=== PATIENT | male | born 1960 | race Caucasian/White ===

== ENCOUNTER 2021-11-03 10:26 | Outpatient (CLI) | payer MEDICARE, MEDICAID, SELFPAY ==
[2021-11-03] MEDS: TETRACAINE 0.5% OPHTH 1 DROP EYE-BOTH ×3 (10:50→11:18)
[2021-11-03] MEDS: BRIMONIDINE TARTRATE 0.2% OPHTH 1 DROP EYE-BOTH ×2 (10:51→11:28)
[2021-11-03 10:57] VITALS: BP 117/62; PULSE 89; RESP 18; TEMP 36.4; O2SAT 95
--- NOTE | 2021-11-03 15:13 | PM.PROC ---
Procedure Note Will [facility] bill your pro fee for this procedure?: Yes Procedure: SURGEON: Tasha Gonzáles MD PREOPERATIVE DIAGNOSIS: Posterior capsular opacity, right and left eye POSTOPERATIVE DIAGNOSIS: Posterior capsular opacity, right and left eye PROCEDURE: YAG laser capsulotomy, both eyes ANESTHESIA: Topical. ESTIMATED BLOOD LOSS: None PATHOLOGY SPECIMEN: None COMPLICATIONS: None INDICATIONS: See consult note for details. The risks, benefits and alternatives of the procedure were explained to the patient, who elected to proceed and signed informed consent to do so. PROCEDURE: The patient was brought to the pre-holding area where the right and left eyes were identified as the operative eyes. I placed my initials above the eyes. The following was given in both eyes: The patient received 2 sets of 1 drop of 0.5% tetracaine and 1 drop of 1% tropicamide. They also received 1 drop of 0.2% brimonidine. They received 1 drop of 0.5% tetracaine immediately prior to bringing them back for the procedure. The patient was then brought to the procedure room where the right and left eyes were again identified as the operative eyes. A YAG Markos capsulotomy lens was placed on the right eye. The laser was administered using a total number of 14 shots with an energy of 2.4 mJ per shot for a total energy of 34mJ. The patient tolerated the procedure well. A YAG Markos capsulotomy lens was placed on the left eye. The laser was administered using a total number of 9 shots with an energy of 2.4 mJ per shot for a total energy of 22 mJ. The patient tolerated the procedure well. DISPOSITION: The patient was taken back to the pre-holding area and given 1 drop of 0.2% brimonidine in both eyes. They were discharged to home in stable condition. The patient was instructed to call me or go to the emergency department with any sudden change, including dramatic loss of vision, severe pain in the eye or eyebrow region, nausea, or vomiting. The patient was instructed to use the 0.2% brimonidine 1 drop 2 times a day in both eyes for 1 week. The patient will follow up in the clinic in 1-2 weeks.
== END 2021-11-03 11:30 | disposition home or self-care (01) ==
PROVIDERS: Visit Provider Ophthalmology
DX: H26.9 Unspecified cataract (principal)
CPT/HCPCS: 66821; A9270

== ENCOUNTER 2024-05-10 08:00 | Outpatient (CLI) | payer MEDICARE, MEDICAID, SELFPAY | END 2024-05-10 08:01 | disposition home or self-care (01) | LOC: AMB 05-21 00:47 | PROVIDERS: PCP Family Medicine; Visit Provider Internal Medicine | DX: R53.1 Weakness (principal) | CPT/HCPCS: A0998 ==

== ENCOUNTER 2024-05-10 09:15 | Outpatient (CLI) | payer MEDICARE, MEDICAID, SELFPAY | END 2024-05-10 09:16 | disposition home or self-care (01) | LOC: AMB 05-18 07:37 | PROVIDERS: PCP Family Medicine; Visit Provider Internal Medicine | DX: R53.1 Weakness (principal); M62.81 Muscle weakness (generalized) | CPT/HCPCS: A0425; A0429 ==

== ENCOUNTER 2024-05-10 09:33 | Emergency (ER) | payer MEDICARE, MEDICAID, SELFPAY ==
[2024-05-10] VITALS (23 sets, daily range): BP systolic 105–153; BP diastolic 56–94; PULSE 92–108; RESP 16–18; TEMP 35.8–36.4; O2SAT 91–95; BMI 40.6
--- NOTE | 2024-05-10 09:39 | CRLHL7_ITS ---
For Patients: As a result of the Century Cures Act, medical imaging exams and procedure reports are released immediately into your electronic medical record. You may view this report before your referring provider. If you have questions, please contact your health care provider. INDICATION: Acute stroke, right arm and leg weakness. TECHNIQUE: CTA neck with contrast bolus tracking, 3D angiographic rendering using maximum intensity projection (MIP) and images permanently archived. FINDINGS: There is minor bilateral carotid atherosclerosis. There is no significant carotid artery stenosis or dissection. The left vertebral artery is small and functionally occluded. There is no significant right vertebral artery stenosis or dissection. The soft tissues of the neck are within normal limits. The cervical spine is in normal alignment. Degenerative changes are noted in the cervical spine. IMPRESSION: 1. Carotid atherosclerosis without significant stenosis. 2. Functionally occluded small left vertebral artery. Please note that all CT scans at this facility use dose modulation, iterative reconstruction, and/or weight-based dosing when appropriate to reduce radiation dose to as low as reasonably achievable. Dictated by Francis Moreno MD @ 05/10/2024 10:32:24 AM (Electronically Signed)
--- NOTE | 2024-05-10 09:39 | CRLHL7_ITS ---
For Patients: As a result of the Century Cures Act, medical imaging exams and procedure reports are released immediately into your electronic medical record. You may view this report before your referring provider. If you have questions, please contact your health care provider. INDICATION: Acute stroke, right arm and leg weakness. TECHNIQUE: CTA head with contrast bolus tracking, 3D angiographic rendering using maximum intensity projection (MIP) and images permanently archived. FINDINGS: There is scattered intracranial atherosclerotic disease. The basilar artery is diminutive and terminates at the level of the superior cerebellar arteries. Both posterior cerebral arteries have origin, arising from the internal carotid arteries. No aneurysm is identified. IMPRESSION: Diminutive basilar artery as described. No anterior circulation large vessel occlusion. Please note that all CT scans at this facility use dose modulation, iterative reconstruction, and/or weight-based dosing when appropriate to reduce radiation dose to as low as reasonably achievable. Dictated by Francis Moreno MD @ 05/10/2024 10:29:42 AM (Electronically Signed)
--- NOTE | 2024-05-10 09:39 | CRLHL7_ITS ---
For Patients: As a result of the Century Cures Act, medical imaging exams and procedure reports are released immediately into your electronic medical record. You may view this report before your referring provider. If you have questions, please contact your health care provider. INDICATION: FALL, WEAKNESS, HX CVA W/ I DFICITS, NOW W/ RT LEG/ARM. TECHNIQUE: Non-contrast CT of the head is submitted. No comparisons. FINDINGS: Mild diffuse parenchymal volume loss with commensurate vacuo dilatation ventricles and sulci. Right cerebellar hemisphere encephalomalacia, compatible with a remote infarct. Additional small focus of encephalomalacia along the anteroinferior cortex of the right precentral gyrus. Otherwise, no territorial loss of [place]-white differentiation to indicate an acute transcortical infarction. No acute intracranial hemorrhage or mass effect. No midline shift. The basal cisterns are widely patent. IMPRESSION: No radiographic evidence of acute intracranial abnormalities. These findings were discussed with Dr. Campo at 10:01 a.m. Please note that all CT scans at this facility use dose modulation, iterative reconstruction, and/or weight-based dosing when appropriate to reduce radiation dose to as low as reasonably achievable. Dictated by Aung Lopez MD @ 05/10/2024 10:02:26 AM (Electronically Signed)
--- NOTE | 2024-05-10 09:39 | CRLHL7_ITS ---
For Patients: As a result of the Century Cures Act, medical imaging exams and procedure reports are released immediately into your electronic medical record. You may view this report before your referring provider. If you have questions, please contact your health care provider. INDICATION: Trauma. Weakness. History of CVA. COMPARISON: None TECHNIQUE: CT examination of the cervical spine is performed without contrast using spiral technique. Thin axial, sagittal and coronal reconstructions were made. Please note that all CT scans at this facility use dose modulation, iterative reconstruction, and/or weight-based dosing when appropriate to reduce radiation dose to as low as reasonably achievable. FINDINGS: : There is no traumatic malalignment. Curvature is normal. Relatively mild degenerative changes diffusely. No acute fracture, dislocation or destructive process. There are atherosclerotic vascular calcifications including the carotids. IMPRESSION: Degenerative changes. No visible acute fracture, dislocation or destructive process. Atherosclerotic vascular calcifications noted. Please note that all CT scans at this facility use dose modulation, iterative reconstruction, and/or weight-based dosing when appropriate to reduce radiation dose to as low as reasonably achievable. Dictated by Norbert Avendano MD @ 05/10/2024 10:14:47 AM (Electronically Signed)
--- NOTE | 2024-05-10 09:44 | ED_ITS ---
HPI - General Adult General Time Seen by Provider: 09:35 Date Seen: 05/10/24 Chief complaint: Neuro Symptoms/Altered Deficit Stated complaint: R arm weakness Time Seen by Provider: 05/10/24 09:35 Source: patient, EMS and RN notes reviewed Mode of arrival: EMS Limitations: no limitations History of Present Illness HPI narrative: This 63-year-old male is brought in by [facility] by EMS. They were called to the facility for a lift assist. Patient slid out of his recliner in maybe was down on the floor for couple of hours. He was incontinent of urine. They helped get him up, assisted with helping getting him cleaned up. He initially did not want evaluation, EMS left but was subsequently called back when right- sided deficits were noted when he went to breakfast. Patient has a history of a stroke and residual left-sided deficits. He is denying any pain at this point. He did go down to eat after this and was noted to have right arm and leg weakness and requested evaluation in the ER. We do not have a definite time frame for this right weakness. He is denying any pain. No headache. EMS obtained a glucose of 336 on the 1st run, were back within an hour and thus did not do a subsequent glucose. His last oral intake was last night reportedly. Patient was seen on arrival, he is alert and interactive, has some food along the right side of his face. Somewhat flat in affect. He can speak But is not very verbose. He has basically answering yes no questions but is alert and interactive. His hand cloth pattern maker strengths are more diminished on the right versus the left, would give his left about a 3/4, right is certainly less strong than the left but still does have some hand cloth pattern maker strength. He can lift his arms off the bed but when holding them up in front of him, right arm has some a tremulousness to it, has difficulty holding it up compared to the left. He cannot lift his right leg off the bed at all, can briefly lift his left leg off the bed for a couple seconds. He can press down and hold up with through his left ankle, is not giving me any movement through his right ankle. Did call a stroke code at this point, will have head CT, cervical spine CT given potential trauma as well as angio of his head and neck. Rule out ischemic stroke, potential underlying bleeding. Related Data Home Medications ?Medication ?Instructions ?Recorded ?Confirmed acetaminophen 500 mg tablet 500 mg PO Q6H PRN 05/10/24 05/10/24 aspirin 81 mg tablet,delayed 81 mg PO DAILY 05/10/24 05/10/24 release atorvastatin 40 mg tablet 40 mg PO DAILY 05/10/24 05/10/24 bupropion HCl 150 mg 24 hr tablet, 150 mg PO DAILY 05/10/24 05/10/24 extended release carvedilol 6.25 mg tablet 6.25 mg PO BID 05/10/24 05/10/24 cholecalciferol (vitamin D3) 25 25 mcg PO DAILY 05/10/24 05/10/24 mcg (1,000 unit) tablet clopidogrel 75 mg tablet 75 mg PO DAILY 05/10/24 05/10/24 empagliflozin 25 mg tablet 25 mg PO DAILY 05/10/24 05/10/24 (Jardiance) escitalopram oxalate 20 mg tablet 20 mg PO DAILY 05/10/24 05/10/24 furosemide 20 mg tablet 20 mg PO DAILY 05/10/24 05/10/24 gabapentin 300 mg capsule 300 mg PO DAILY 05/10/24 05/10/24 lisinopril 5 mg tablet 5 mg PO DAILY 05/10/24 05/10/24 multivitamin with folic acid 400 1 tab PO DAILY 05/10/24 05/10/24 mcg tablet (Tab-A-Myron) omega-3 300 mg-dha 120 mg-epa 180 cap PO 05/10/24 mg-fish oil 1,000 mg capsule trazodone 100 mg tablet 100 mg PO DAILY 05/10/24 05/10/24 umeclidinium 62.5 mcg/actuation 1 inh inhalation DAILY 05/10/24 05/10/24 blister powder for inhalation (Incruse Ellipta) urea 20 % topical cream applic topical 05/10/24 Allergies Allergy/AdvReac Type Severity Reaction Status Date / Time doxycycline Allergy Unknown Verified 05/10/24 10:17 tetracycline Allergy Unknown Verified 05/10/24 10:17 Review of Systems Status of ROS: Reports: 6 or more systems reviewed and unremarkable except as noted in History and below [facility] Medical History (Updated 05/10/24 @ 15:26 by Danya Santana MD) Hemiplegia and hemiparesis following cerebral infarction affecting right d ominant side ?I69.351 - Hemiplegia and hemiparesis following cerebral infarction affecting right dominant side (ICD-10) Hypertension ?I10 - Essential (primary) hypertension (ICD-10) History of fall ?Z91.81 - History of falling (ICD-10) Hyperlipidemia ?E78.5 - Hyperlipidemia, unspecified (ICD-10) Obesity ?E66.9 - Obesity, unspecified (ICD-10) Type 2 diabetes mellitus ?E11.9 - Type 2 diabetes mellitus without complications (ICD-10) Surgical History (Updated 05/10/24 @ 11:07 by Danya Santana MD) Status post aorto-coronary artery bypass graft ?Z95.1 - Presence of aortocoronary bypass graft (ICD-10) Social History Non-prescribed substance use: denies use Exam Const: Vital Signs, click to edit/add: Vital Signs - 24 hr 05/10/24 09:33 05/10/24 10:03 05/10/24 10:46 Temperature 96.5 F L Pulse Rate 101 H Pulse Rate [Pulse Oximeter] 108 H Respiratory Rate 16 Blood Pressure Blood Pressure [Ri ght Upper Arm] 150/84 H Pulse Oximetry 94 95 94 Oxygen Delivery Me thod Room Air 05/10/24 10:47 05/10/24 10:48 05/10/24 11:00 Temperature Pulse Rate 102 H 103 H 99 Pulse Rate [Pulse Oximeter] Respiratory Rate 18 Blood Pressure 153/56 H Blood Pressure [Ri ght Upper Arm] Pulse Oximetry 93 94 95 Oxygen Delivery Me thod 05/10/24 11:03 05/10/24 11:15 05/10/24 11:16 Temperature Pulse Rate 104 H Pulse Rate [Pulse Oximeter] Respiratory Rate Blood Pressure 136/94 H 127/81 Blood Pressure [Ri ght Upper Arm] Pulse Oximetry 93 Oxygen Delivery Me thod 05/10/24 12:39 05/10/24 12:40 05/10/24 12:45 Temperature Pulse Rate 102 H 104 H 103 H Pulse Rate [Pulse Oximeter] Respiratory Rate Blood Pressure 132/86 Blood Pressure [Ri ght Upper Arm] Pulse Oximetry 93 94 93 Oxygen Delivery Me thod 05/10/24 12:46 05/10/24 13:00 05/10/24 13:01 Temperature Pulse Rate 101 H 101 H 100 Pulse Rate [Pulse Oximeter] Respiratory Rate Blood Pressure 123/76 131/89 Blood Pressure [Ri ght Upper Arm] Pulse Oximetry 93 94 94 Oxygen Delivery Me thod 05/10/24 13:17 05/10/24 13:30 05/10/24 13:33 Temperature 97.6 F Pulse Rate 98 93 94 Pulse Rate [Pulse Oximeter] Respiratory Rate 18 Blood Pressure 121/67 105/66 Blood Pressure [Ri ght Upper Arm] Pulse Oximetry 92 91 92 Oxygen Delivery Me thod 05/10/24 13:34 05/10/24 13:46 05/10/24 14:02 Temperature Pulse Rate 92 Pulse Rate [Pulse Oximeter] Respiratory Rate Blood Pressure 109/56 L 122/73 Blood Pressure [Ri ght Upper Arm] Pulse Oximetry 92 Oxygen Delivery Me thod 05/10/24 14:11 05/10/24 14:15 Temperature Pulse Rate 100 103 H Pulse Rate [Pulse Oximeter] Respiratory Rate Blood Pressure Blood Pressure [Ri ght Upper Arm] Pulse Oximetry 93 91 Oxygen Delivery Me thod Course Reevaluation(s) Time of Reevaluation #1: 11:03 Reevaluation #1: Current glucose through lab is 476. Patient does state he did take his insulin this morning, absolutely do not know if this is accurate or not. Will give him some IV regular insulin given this level of sugar. Follow Accu-Cheks. Time of Reevaluation #2: 15:25 Reevaluation #2: Patient was given another dose of insulin for hyperglycemia. He has been able to move himself into his wheelchair. Plan is to discharge back to [facility] at this time with outpatient follow-up. Consultations Consultation #1: Spoke with stroke neurologist Dr. Campo, he will see patient hopefully when patient is back from [facility]. Have reviewed with him my preliminary thoughts on the head CT, certainly do see right cerebellar old infarct. Need to have Neurology as well as Radiology visualize these. CT angiograms are being done. He would like a MR brain noncontrast which I have subsequently ordered. Patient is very likely not a candidate for any lytic therapy. 10:23 a.m.: Have spoken with Dr. Campo, he has seen the patient. He is not finding much on the left side, does agree that there right-sided deficits and weakness. There is nothing acutely showing on the CT angiograms or the CT brain. I will text him when the MR imaging is done of the brain. We will discuss further after we have that. Did see that patient's lactate is elevated at 3.6. Will give him a 500 mL normal saline bolus, patient is diabetic with hyperglycemia, could be attributed to metabolic issues. Will consider infectious issues as well. 2:41 p.m.: Dr. Campo has been able to review MRI, there is no new stroke. Patient can be discharged to home. If he has ongoing weakness, can follow up with his primary, can go to physical therapy. Time: 09:50 Vital Signs Vital signs: Initial Vital Signs Temperature 96.5 F L 05/10/24 09:33 Temperature Source Temporal Artery Scan 05/10/24 09:33 Pulse Rate 108 H 05/10/24 09:33 Respiratory Rate 16 05/10/24 09:33 Blood Pressure 150/84 H 05/10/24 09:33 Blood Pressure Mean 106 H 05/10/24 09:33 Blood Pressure Position Supine 05/10/24 09:33 Pulse Oximetry 94 05/10/24 09:33 Oxygen Delivery Method Room Air 05/10/24 09:33 Vital Signs Temperature 96.5 F L 05/10/24 09:33 Pulse Rate 108 H 05/10/24 09:33 Respiratory Rate 16 05/10/24 09:33 Blood Pressure 150/84 H 05/10/24 09:33 Pulse Oximetry 94 05/10/24 09:33 Oxygen Delivery Method Room Air 05/10/24 09:33 Temperature 97.6 F 05/10/24 13:33 Pulse Rate 103 H 05/10/24 14:15 Respiratory Rate 18 05/10/24 13:33 Blood Pressure 122/73 05/10/24 14:02 Pulse Oximetry 91 05/10/24 14:15 Oxygen Delivery Method Room Air 05/10/24 09:33 Medications Administered Medications: Discontinued Medications Generic Name Dose Route Start Last Admin Trade Name Freq PRN Reason Stop Dose Admin Sodium Chloride 500 mls @ 500 mls/hr 05/10/24 10:25 05/10/24 14:14 0.9 % Sodium Chloride 500 Ml IV 05/10/24 11:24 Infused .Q1H ONE Infusion Insulin Human Regular 10 unit 05/10/24 11:05/10/24 11:19 Insulin Regular, Human 100 Unit/Ml Vial IVP 05/10/24 11:04 10 unit ONCE ONE Administration Insulin Human Regular 6 unit 05/10/24 14:42 05/10/24 14:49 Insulin Regular, Human 100 Unit/Ml Vial IVP 05/10/24 14:43 6 unit ONCE ONE Administration Medical Decision Making Medical Records Medical records reviewed: Yes I reviewed the patient's medical records Medical records narrative: On subsequent review of his records, his problem list from [facility] shows hemiplegia and hemiparesis following cerebral infarction affecting right dominant side. Lab Data Lab results reviewed: Yes I reviewed the patient's lab results Labs: Lab Results 05/10/24 05/10/24 Range/Units 10:02 10:04 WBC 10.61 (4.50-11.00) K/uL RBC 5.71 (4.30-5.90) m/uL Hgb 16.7 (13.5-17.5) gm/dL Hct 50.9 (37.0-53.0) % MCV 89 (80-100) fL MCH 29 (26-34) pg MCHC 33 (32-36) gm/dL RDW Coeff of Regis 12.8 (11.5-15.5) % Plt Count 199 (140-440) K/uL Neut % (Auto) 79.0 H (42.0-72.0) % Lymph % (Auto) 13.7 L (20-44) % [place] % (Auto) 6.9 (0.0-11.0) % Eos % (Auto) 0.1 (0.0-7.0) % Baso % (Auto) 0.1 (0.0-3.0) % Neut # (Auto) 8.40 H (1.7-7.0) K/uL Lymph # (Auto) 1.50 (0.90-2.90) K/uL [place] # (Auto) 0.70 (0.00-0.90) K/UL Eos # (Auto) 0.01 (0.00-0.50) K/uL Baso # (Auto) 0.01 (0.00-0.30) K/uL Abs Immat Gran (auto) 0.02 (0.00-0.30) K/uL Imm/Tot Granulo (auto) 0.2 % INR 1.06 (0.91-1.10) APTT 28 (23-33) Seconds Sodium 130 L (135-149) mmol/L Potassium 5.6 H (3.6-5.1) mmol/L Chloride 100 (96-114) mmol/L Carbon Dioxide 21 (20-32) mmol/L Anion Gap 9 (7-15) mEq/L BUN 45 H (7-30) mg/dL Creatinine 1.3 (0.5-1.5) mg/dL Estimated Creat Clear 56.65 Estimated GFR 61 ml/min Glucose 476 H* (60-115) mg/dL Lactate 3.6 H (0.5-1.9) mmol/L Calcium 8.3 L (8.4-10.6) mg/dL Total Bilirubin 0.4 (0.1-1.5) mg/dL AST 23 (12-35) U/L ALT 29 (4-50) U/L Alkaline Phosphatase 140 (40-150) U/L Total Creatine Kinase 122 (54-186) U/L Troponin I 0.03 (0.01-0.04) ng/mL C-Reactive Protein 1.0 (0.5-1.0) mg/dL NT-Pro-B Natriuret Pep 288 pg/mL Total Protein 6.3 (6.0-8.3) g/dL Albumin 3.8 (3.3-5.0) g/dL TSH 0.337 (0.270-4.200) uIU/mL Ethyl Alcohol < 0.01 L (0.01-0.03) % SARS-CoV-2 (PCR) Negative SARS-CoV-2 (Negative) Influenza Type A (PCR) Negative PCR FLU A (Negative) Influenza Type B (PCR) Negative PCR FLU B (Negative) RSV (PCR) Negative PCR RSV (Negative) Imaging Data CT scan - head: Attestation: I have reviewed the pertinent imaging results. Radiologist's impression: Facility:?[facility] Patient ID:?[id number] Site Patient ID:?[id number]. Site :?05/09/1951 Study:?CT-Abdomen/Pelvis w/iv-05/10/2024 9:08:52 AM Ordering Physician:?Esther Hagan Final Report: INDICATION: Lower abdominal cramping COMPARISON: None TECHNIQUE: CT examination of the abdomen and pelvis was performed following the uneventful intravenous administration of 89 cc of Isovue 370. Thin section axial images were obtained from the lung bases through the pubic symphysis. Oral contrast was not administered. Please note that all CT scans at this facility use dose modulation, iterative reconstruction, and/or weight-based dosing when appropriate to reduce radiation dose to as low as reasonably achievable. FINDINGS: LUNG BASES: Linear opacities probably due to atelectasis or scarring.The heart size is normal at the lung bases. Small hiatal hernia LIVER/BILIARY SYSTEM:The liver is normal in size and configuration. There is no focal mass and there is no intra- or extra hepatic biliary ductal dilatation.The gall bladder appears normal. ADRENALS: Normal KIDNEYS, URETERS and BLADDER:The kidneys appear normal. No visible mass, calculus or hydronephrosis. The ureters and bladder as visualized appear normal. SPLEEN:Normal appearance. PANCREAS: Appears normal. RETROPERITONEUM and MESENTERY: There is no mass, adenopathy or aortic aneurysm. Atherosclerotic vascular calcification GASTROINTESTINAL SYSTEM: There are findings of colitis involving the mid to left lateral transverse colon and descending colon and probably a small portion of the sigmoid. There is diverticulosis. No intramural air, free air or collection. PELVIS: No mass, adenopathy or free fluid. OSSEOUS STRUCTURES and ABDOMINAL WALL: There is an age-appropriate appearance of the osseous structures.No significant abdominal wall defect. OTHER: No free fluid or free air. IMPRESSION: Colitis involving the mid and left lateral aspect of the transverse colon, descending colon and a portion of the sigmoid. No intramural air, free air or collection. Other incidental nonacute findings as discussed in the body of the report. Please note that all CT scans at this facility use dose modulation, iterative reconstruction, and/or weight-based dosing when appropriate to reduce radiation dose to as low as reasonably achievable. Dictated by Norbert Avendano MD @ 05/10/2024 9:17:49 AM (Electronic Signature) CT- Other: Attestation: I have reviewed the pertinent imaging results. Radiologist's impression: Patient: CHUN CARVAJAL Facility:?[facility] Patient ID:?[id number] Site Patient ID:?[id number]. Site :?1960 Study:?CT-Neck Angio Angio STROKE CODE-05/10/2024 9:58:49 AM Ordering Physician:Clotilde Hagan Preliminary Report: COMPARISON: None. IMPRESSION: CTA head: The basilar artery is diminutive and may terminate in the superior cerebellar arteries. Bilateral type stock puller. No sign of occlusion or significant aneurysm. 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 No sign of dissection or significant stenosis of the right vertebral artery carotid arteries. These findings were discussed with Dr. Campo at 10:19 a.m. Dictated by Aung Lopez MD @ 05/10/2024 10:19:39 AM Read by:?Aung Lopez MD @05/10/2024 10:19:53 AM MR Brain: Attestation: I have reviewed the pertinent imaging results. My impression: Have paged neurologist Dr. Campo to let him know that this is done. Radiologist's impression: Patient: CHUN CARVAJAL Facility:?[facility] Patient ID:?[id number] Site Patient ID:?[id number]. Site :?1960 Study:?MRI-Head WO-05/10/2024 1:08:49 PM Ordering Physician:Clotilde Hagan Final Report: INDICATION: new R arm/leg weakness, hx cva w/ left deficits TECHNIQUE: Multiplanar, multisequence MRI brain without contrast. Comparison is made to the earlier same day CT code stroke. FINDINGS: Multisequence motion degradation, limiting fine detail evaluation. Mild diffuse cerebral atrophy. Redemonstrated right cerebellar hemisphere encephalomalacia and right inferior precentral gyrus encephalomalacia both with associated gliosis. The ventricles, sulci and gyri are of normal size, shape and contour for age and degree of atrophy. Midline structures are centrally located. No convincing evidence of suspicious intra- or extra-axial fluid collections. Mild patchy regions of increased FLAIR signal within the periventricular and subcortical white matter of both cerebral hemispheres. No regions of restricted diffusion. IMPRESSION: No acute intracranial hemorrhage, infarct, or mass effect. Dictated by Aung Lopez MD @ 05/10/2024 1:27:28 PM (Electronic Signature) CT cervical spine: Attestation: I have reviewed the pertinent imaging results. Radiologist's impression: Patient: CHUN CARVAJAL Facility:?[facility] Patient ID:?[id number] Site Patient ID:?[id number]. Site :?1960 Study:?CT-Spine Cervical WITHOUT-05/10/2024 9:51:11 AM Ordering Physician:Clotilde Hagan Final Report: INDICATION: Trauma. Weakness. History of CVA. COMPARISON: None TECHNIQUE: CT examination of the cervical spine is performed without contrast using spiral technique. Thin axial, sagittal and coronal reconstructions were made. Please note that all CT scans at this facility use dose modulation, iterative reconstruction, and/or weight-based dosing when appropriate to reduce radiation dose to as low as reasonably achievable. FINDINGS: : There is no traumatic malalignment. Curvature is normal. Relatively mild degenerative changes diffusely. No acute fracture, dislocation or destructive process. There are atherosclerotic vascular calcifications including the carotids. IMPRESSION: Degenerative changes. No visible acute fracture, dislocation or destructive process. Atherosclerotic vascular calcifications noted. Please note that all CT scans at this facility use dose modulation, iterative reconstruction, and/or weight-based dosing when appropriate to reduce radiation dose to as low as reasonably achievable. Dictated by Norbert Avendano MD @ 05/10/2024 10:14:47 AM (Electronic Signature) ECG Data Attestation: I personally reviewed and interpreted this ECG as follows: (Sinus tachycardia, 105 beats per minute. Flipped T-waves inferiorly without definitive ST segment change.) Prior ECG tracings: not available for review Discharge Plan Discharge Clinical Impression: History of cardioembolic cerebrovascular accident (CVA), Weakness, Diabetes mellitus with hyperglycemia Patient Disposition: Home, Self-Care Condition: Stable Instructions: Weakness (ED) Additional Instructions: CT head and neck, CT angiogram of head neck as well as MRI of brain noncontrast revealed no acute neurologic deficit. Labs are reassuring outside of hyperglycemia. Do recommend that you follow-up with your primary care provider as quickly as possible to work on diabetic control. If possible, nursing staff can maybe give that provider a message. No evidence of influenza or COVID on testing. We did do screening TSH which was normal. If there are concerns with ongoing weakness, consider physical therapy, further workup with your primary care provider. Activity Level: Activity as Tolerated Prescriptions: No Action urea 20 % cream topical aspirin 81 mg tablet,delayed release (DR/EC) 81 mg PO DAILY acetaminophen 500 mg tablet 500 mg PO Q6H PRN cholecalciferol (vitamin D3) 25 mcg (1,000 unit) tablet 25 mcg PO DAILY multivitamin with folic acid [Tab-A-Myron] 400 mcg tablet 1 tab PO DAILY omega 0-svc-kta-fish oil 300 mg (120 mg- 180mg)-1,000 mg capsule PO atorvastatin 40 mg tablet 40 mg PO DAILY bupropion HCl 150 mg tablet extended release 24 hr 150 mg PO DAILY carvedilol 6.25 mg tablet 6.25 mg PO BID Rx Instructions: must administer with a meal/food clopidogrel 75 mg tablet 75 mg PO DAILY escitalopram oxalate 20 mg tablet 20 mg PO DAILY furosemide 20 mg tablet 20 mg PO DAILY gabapentin 300 mg capsule 300 mg PO DAILY Incruse Ellipta 62.5 mcg/actuation blister with device 1 inh inhalation DAILY Jardiance 25 mg tablet 25 mg PO DAILY lisinopril 5 mg tablet 5 mg PO DAILY trazodone 100 mg tablet 100 mg PO DAILY Follow Up/Referrals: Provider,Not a Local [Non-Staff] - Stand Alone Forms: Ofelia Feliz Info Instructions
--- NOTE | 2024-05-10 09:53 | CRLHL7_ITS ---
For Patients: As a result of the Century Cures Act, medical imaging exams and procedure reports are released immediately into your electronic medical record. You may view this report before your referring provider. If you have questions, please contact your health care provider. INDICATION: new R arm/leg weakness, hx cva w/ left deficits TECHNIQUE: Multiplanar, multisequence MRI brain without contrast. Comparison is made to the earlier same day CT code stroke. FINDINGS: Multisequence motion degradation, limiting fine detail evaluation. Mild diffuse cerebral atrophy. Redemonstrated right cerebellar hemisphere encephalomalacia and right inferior precentral gyrus encephalomalacia both with associated gliosis. The ventricles, sulci and gyri are of normal size, shape and contour for age and degree of atrophy. Midline structures are centrally located. No convincing evidence of suspicious intra- or extra-axial fluid collections. Mild patchy regions of increased FLAIR signal within the periventricular and subcortical white matter of both cerebral hemispheres. No regions of restricted diffusion. IMPRESSION: No acute intracranial hemorrhage, infarct, or mass effect. Dictated by Aung Lopez MD @ 05/10/2024 1:27:28 PM (Electronically Signed)
[2024-05-10 10:09] LABS: Lactate* 3.6 mmol/L (0.5-1.9)
[2024-05-10 10:13] LABS: Basophils Absolute Auto 0.01 K/uL (0.00-0.30); Basophils Percent Auto 0.1 % (0.0-3.0); Eosinophils Absolute Auto 0.01 K/uL (0.00-0.50); Eosinophils Percent Auto 0.1 % (0.0-7.0); Hematocrit 50.9 % (37.0-53.0); Hemoglobin* 16.7 gm/dL (13.5-17.5); Immature Granulocytes Abs Auto 0.02 K/uL (0.00-0.30); Immature Granulocytes Pct Auto 0.2 %; Lymphocytes Percent Auto 13.7 % (20-44); Mean Corpuscular HGB Conc 33 gm/dL (32-36); Mean Corpuscular Hemoglobin 29 pg (26-34); Mean Corpuscular Volume 89 fL (80-100); Monocytes Percent Auto 6.9 % (0.0-11.0); Platelet Count* 199 K/uL (140-440); RDW Coefficient of Variation % 12.8 % (11.5-15.5); Red Blood Count 5.71 m/uL (4.30-5.90); White Blood Count* 10.61 K/uL (4.50-11.00)
[2024-05-10 10:20] LABS: Slide Review Reflex No
[2024-05-10 10:34] LABS: INR 1.06 (0.91-1.10); Prothrombin Time 14.4 Seconds
[2024-05-10 10:35] LABS: Partial Thromboplastin Time* 28 Seconds (23-33)
[2024-05-10 10:40] LABS: Albumin* 3.8 g/dL (3.3-5.0); Chloride* 100 mmol/L (96-114); Sodium* 130 mmol/L (135-149)
[2024-05-10 10:41] LABS: Potassium* 5.6 mmol/L (3.6-5.1)
[2024-05-10 10:42] LABS: Bilirubin Total* 0.4 mg/dL (0.1-1.5); Creatinine* 1.3 mg/dL (0.5-1.5); Est. Creatinine Clearance* 56.65; Estimated Glomerular Filt Rate 61 ml/min
[2024-05-10 10:43] LABS: Alanine Aminotransferase* 29 U/L (4-50); Alkaline Phosphatase* 140 U/L (40-150); Anion Gap 9 mEq/L (7-15); Aspartate Amino Transferase* 23 U/L (12-35); Blood Urea Nitrogen* 45 mg/dL (7-30); Calcium* 8.3 mg/dL (8.4-10.6); Carbon Dioxide* 21 mmol/L (20-32); Creatine Kinase* 122 U/L (54-186); Total Protein* 6.3 g/dL (6.0-8.3)
[2024-05-10 10:44] LABS: Glucose* 476 mg/dL (60-115)
[2024-05-10 10:47] LABS: PCR FLU A Negative PCR FLU A (Negative); PCR FLU B Negative PCR FLU B (Negative); PCR RSV Negative PCR RSV (Negative); SARS PCR* Negative SARS-CoV-2 (Negative)
[2024-05-10 10:50] LABS: Ethanol* < 0.01 % (0.01-0.03)
--- OUTSIDE RECORDS SUMMARY | 2024-05-10 10:52 | XMS_ITS | Clinical Summary ---
Author Organization [facility] Address [place], [place] [address] Care Team Providers Care Posting Clerk Name Role Phone Unavailable Primary Care Provider Unavailabl e Allergies Active Allergy Reactions Criticality Noted Date Comments Doxycycline *Unknown - Follow up needed 020 Tetracycline Rash 12/01/2008 Medications DAILY-VADIM tablet Take 1 tablet by mouth once daily. 11/04/19 20 Active polyethylene glycol (MIRALAX; GLYCOLAX) 17 g powder for solution Take 17 g by mouth or nasogastric tube once daily if needed. 0 01/08/20 20 Active durable medical equipment (DME)Indications:P hysical deconditioning,Rig ht hemiparesis (HC) Lift chair. 1 Each 06/15/19 21 Active lancets (Microlet Lancet)Indications :Controlled type 2 diabetes mellitus without complication, without long-term current use of insulin (HC) TEST TWO TIMES DAILY 200 Each 3 12/12/19 21 Active blood sugar diagnostic (Contour Next Test Strips) stripIndications:C ontrolled type 2 diabetes mellitus without complication, without long-term current use of insulin (HC) TEST TWO TIMES DAILY 200 Strip 3 12/12/19 21 Active atorvastatin (LIPITOR) 40 mg tabletIndications: Mixed hyperlipidemia Take 1 Tablet (40 mg) by mouth at bedtime. 90 Tablet 4 06/02/19 22 Active glipiZIDE extended-release (GLUCOTROL XL) 5 mg Extended-Release tabletIndications: Controlled type 2 diabetes mellitus with complication, without long-term current use of insulin (HC) Take 1 Tablet (5 mg) by mouth once daily before a meal. 90 Tablet 3 06/02/19 22 Active acetaminophen SR (TYLENOL ARTHRITIS) 650 mg Extended-Release tabletIndications: Pain TAKE 2 TABLETS BY MOUTH TWICE DAILY 360 Tablet 1 10/08/19 22 Active metFORMIN (GLUCOPHAGE) 1,000 mg tabletIndications: Controlled type 2 diabetes mellitus with complication, without long-term current use of insulin (HC) TAKE 1 TABLET BY MOUTH TWICE DAILY WITH MEALS 60 Tablet 12/02/19 22 Active clopidogreL (PLAVIX) 75 mg tabletIndications: Arteriosclerotic heart disease (ASHD) TAKE 1 TABLET BY MOUTH EVERY MORNING 28 Tablet 12 12/31/19 22 Active buPROPion (WELLBUTRIN XL) 150 mg Extended-Release tabletIndications: Depression, unspecified depression type TAKE 1 TABLET BY MOUTH EVERY MORNING 28 Tablet 12 02/25/20 22 Active escitalopram oxalate (LEXAPRO) 20 mg tabletIndications: Depression, unspecified depression type TAKE 1 TABLET BY MOUTH EVERY MORNING 28 Tablet 12 02/25/20 22 Active traZODone (DESYREL) 100 mg tabletIndications: Depression, unspecified depression type TAKE 1 TABLET BY MOUTH EVERY NIGHT AT BEDTIME 28 Tablet 12 02/25/20 22 Active acetaminophen (TYLENOL EXTRA STRGTH) 500 mg tabletIndications: Pain Two oral twice daily. 180 Tablet 4 05/06/20 22 Active carvediloL (COREG) 6.25 mg tabletIndications: Arteriosclerotic heart disease (ASHD) TAKE 1 TABLET BY MOUTH TWICE DAILY WITH MEALS 60 Tablet 05/18/19 23 Active furosemide (LASIX) 20 mg tabletIndications: Arteriosclerotic heart disease (ASHD) TAKE 1 TABLET BY MOUTH EVERY MORNING 30 Tablet 05/18/19 23 Active aspirin (ECOTRIN) 81 mg enteric coated tabletIndications: Arteriosclerotic heart disease (ASHD) TAKE 1 TABLET BY MOUTH EVERY MORNING WITH MEAL 90 Tablet 2 06/17/19 23 Active Yha-O-OdnzPigphwku ons:Nutritional deficiency TAKE 1 TABLET BY MOUTH EVERY MORNING 90 Tablet 06/17/19 23 Active cholecalciferol (VITAMIN D3) 1,000 unit tabletIndications: Nutritional deficiency TAKE 1 TABLET BY MOUTH EVERY MORNING 90 Tablet 06/17/19 23 Active Active Problems Problem Noted Date Diagnosed Date Obesity, Class II, BMI 35-39.9 11/21/2019 Controlled type 2 diabetes m ellitus with complication, without long-term current use of insulin 11/21/2019 Cerebrovascular accident (CVA) 11/21/2019 Arteriosclerotic heart disease (ASHD) 12/01/2008 Overview (12/02/2008): - previous stents in Fall 2006 and November 2007 - 12/01/08: NSTEMI with evidence of microvascular embolic event on CTA Mixed hyperlipidemia 12/01/2008 Overview (06/10/2009): - 12/01/08 Lipids: TC 318, TG 204, HDL 80, LDL 197 -03/09/09 TC 276, TG 89, HDL 58, LDL 200 -05/18/2009 Chol 328, TG 188, HDL 68, LDL 222 Essential hypertension 12/01/2008 Overview (02/03/2009): - not treated until 11/18/08, ?started on metoprolol -12/01/08 ECHO Inferior-inferolateral wall motion abnormality with normal left ventricular ejection fraction. No significant functional valvular abnormality. Mild diastolic dysfunction. -01/26/09 ECHO Inferior and inferolateral wall motion abnormality with estimated left ventricular ejection fraction 50%. Moderate diastolic dysfunction. Mild left atrial enlargement. Resolved Problems Problem Noted Date Diagnosed Date Resolved Date Acute renal failure 12/30/2019 12/25/19 21 Right hemiparesis 11/21/2019 06/02/2021 Chest pain 12/01/2008 11/21/2019 Tobacco use disorder 12/01/2008 020 Overview (12/01/2008): - ongoing, 5 cigarettes/day Diabetes Mellitus Type II, Diet-Controlled 12/01/2008 11/21/2019 Overview (12/01/2008): - diet controlled Encounters Date Type Department Care Team Description 05/10/2024 Office Visit [facility] [address] [place] [address] [place] [employer] ([facility]) from Last 3 Months Immunizations Name Administration Dates Next Due Influenza RIV4 (Age 18+ Years) PRESERV FREE 02/06 Influenza, IIV3 (Age >=3 years) 04/19/2013,08/09 Influenza, IIV4 02/27/2018,04/27/2016 Influenza, IIV4 (=>6mos) MDV 02/10/2020,02/23/20 17,02/19/2015 Influenza,CCIIV4 PRESERV FREE 01/16/2017 Pneumococcal Poly,23-Valent (Pneumovax) 04/27/20 16,10/02/2014,08/09/2010 Tdap 12/23/2019,04/19/2013 Social History Tobacco Use Types Packs/Day Years Used Date Smoking Tobacco: Former Cigarettes Q uit: 11/2007 Smokeless Tobacco: Never Tobacco Cessation:Counseling Given: Yes Alcohol Use Standard Drinks/Week Comments Not Currently 0 (1 standard drink = 0.6 oz pur e alcohol) PHQ-2 Answer Date Recorded PHQ-2 TOTAL SCORE 0 11/21/2019 Social Connections Answer Date Recorded Frequency of Communication with Friends and Fami ly Not on file 05/08/2021 Financial Resource Strain Answer Date R ecorded Difficulty of Paying Living Expenses Not on file 05/08/2021 Difficulty of Paying Living Expenses Not on file 05/08/2021 Sex and Gender Information Value Date Recorded Sex Assigned at Not on file Legal Sex Male 7:38 AM [employer] Gender Identity Not on file Sexual Orientation Not on file 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 on file Not on file Not on file Obstetrics History Last Filed Vital Signs Vital Sign Reading Time Taken Comments Blood Pressure 142/88 08/03/2021 2:09 PM CDT Pulse 93 08/03/2021 2:09 PM CDT Temperature 36.9 C (98.4 F) 01/08/2020 8:00 AM CDT Respiratory Rate 20 01/08/2020 8:00 AM CDT Oxygen Saturation 96% 08/03/2021 2:09 PM CDT Inhaled Oxygen Concentration - - Weight 123.2 kg (271 lb 9.6 oz) 08/03/2021 2:09 PM CDT Height 185.4 cm (6' 1) 06/02/2021 8:26 AM [employer] Body Mass Index 35.83 06/02/2021 8:26 AM [employer] Plan of Treatment Health Maintenance Due Date Last Done Comments HIV for age 15-65 1973 Colonoscopy through age 75 01/01/2004 Zoster (shingles) series for age 50+ (1 of 2) 2008 Pneumococcal series for age 50+ (2 of 2 - PCV) 04/27/2017 04/27/2016, 10/02/2014, 08/09/2010 Depression screening for age 12+ 11/20/2020 11/21/19 20, 11/21/2019 BMI (ht and wt on same day) for age 18+ 06/02/2022 06/02/2021, 11/21/2019 COVID-19 vaccine series ( - 2023- season) 2024 03/15/2021, 06/18/2020, 05/21/2020 Influenza for age 65+ 01/07/2024 02/10/2020 , 02/25/2019, 02/27/2018, Additional history exists Lipids for age 45-75 06/02/2026 06/02/2021, 05/04/2020, 05/04/2020, Additional history exists Tetanus booster 12/22/2029 12/23/2019, 04/19/2013 RSV vaccine for adults or (1 - 1-dose 75+ series) 2033 Tdap Completed 12/23/2019, 04/19/2013 Hepatitis C screening for ag e 18-79 Completed 12/24/2020 Procedures Procedure Name Priority Date/Time Associated Diagnosis Comments LIPID PANEL W REFLEX MEASURED LDL Routine 06/02/2021 9:09 AM [employer] Controlled type 2 diabetes mellitus without complication, without long-term current use of insulin (HC) ANTI HCV Routine 12/24/2020 11:23 AM CDT Need for hepatitis C screening test from Last 3 Months or Most Recently Relevant to Health Maintenance Results * (ABNORMAL) LIPID PANEL W REFLEX MEASURED LDL (06/02/2021 9:09 AM [employer]) CHOLESTEROL,TOTAL 176 100 - 199 mg/dL 06/02/2021 2:14 PM [employer] [facility] TRIGLYCERIDES 324(H) <150 mg/dL 06/02/2021 2:14 PM [employer] [facility] HDL CHOLESTEROL 40(L) >40 mg/dL 2:14 PM [employer] [facility] NON-HDL CHOLESTEROL 136 <145 mg/dl 06/02/2021 2:14 PM [employer] [facility] CHOL/HDL RATIO 4.40 <4.50 06/02/2021 2:14 PM [employer] [facility] LDL CHOLESTEROL 71 <=130 mg/dL 06/02/2021 2:14 PM [employer] [facility] VLDL CHOLESTEROL 65(H) <=30 mg/dL 06/02/2021 2:14 PM [employer] [facility] PROVIDER ORDERED STATUS RANDOM 06/02/2021 2:14 PM [employer] [facility] Blood BLOOD SPECIMEN / Unknown Venipuncture / Unknown 06/02/2021 9:09 AM [employer] 06/02/2021 9:09 AM [employer] us Dillan Browne MD CHEMISTRY Final Result [facility] [address] [place] [address], * ANTI HCV (12/24/2020 11:23 AM CDT) Pathologist [facility] HEPATITIS C ANTIBODY Non-React hattie Non-React hattie 12/24/2020 9:01 PM CDT [facility] Comment:Antibodies to HCV no t detected; does not exclude the possibility of exposure to HCV. Blood BLOOD SPECIMEN / Unknown Venipuncture / Unknown 12/24/2020 11:23 AM CDT 12/24/2020 11:27 AM CDT us Dillan Browne MD SEND OUTS Final Result [facility] [address] [place] [address], from Last 3 Months or Most Recently Relevant to Health Maintenance Additional Health Concerns Infection Onset Date Last Indicated MRSA Comment:Order contact precautions. Nares surveillance cultures needed to clear patient if <12 months since positive culture. If >12 months since positive culture, precautions can be discontinued if patient has no MRSA risk factors. 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/terminal operator care, receiving hemodialysis, has chronic open wounds/skin damage, has long-term percutaneous indwelling medical devices Exclusions for nares collection (if <12 months since positive culture) include all of the previous exclusions plus patients on antibiotics 7 days prior to collection 12/27/2019 12/27/2019 Insurance MEDICARE [place] ONLY MEDICARE PART A HB ONLY [facility] PL[facility] Advance Directives Documents on File Type Date Recorded 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
[2024-05-10 10:55] LABS: Troponin I* 0.03 ng/mL (0.01-0.04)
[2024-05-10] MEDS: 0.9 % SODIUM CHLORIDE 500 ML 500 ML IV (10:58)
[2024-05-10 11:17] LABS: TSH With Reflex to FT4* 0.337 uIU/mL (0.270-4.200)
[2024-05-10] MEDS: INSULIN REGULAR, HUMAN 100 UNIT/ML VIAL 10 UNIT IVP (11:19)
[2024-05-10 11:26] LABS: NT Pro B Type NatriureticPept* 288 pg/mL
[2024-05-10] MEDS: INSULIN REGULAR, HUMAN 100 UNIT/ML VIAL 6 UNIT IVP (14:49)
== END 2024-05-10 15:50 | disposition home or self-care (01) ==
PROVIDERS: Emergency Provider Family Medicine; PCP Family Medicine
DX: E11.65 Type 2 diabetes mellitus with hyperglycemia (principal)
CPT/HCPCS: 36415; 70450; 70496; 70498; 70551; 72125; 80053; 81001; 82077; 82550; 83605; 83880; 84443; 84484; 85025; 85610; 85730; 86140; 87631; 93005; 94761; 99285; 99291; J1815; J7030; Q9967

== ENCOUNTER 2024-05-11 08:41 | Outpatient (CLI) | payer MEDICARE, MEDICAID, SELFPAY | END 2024-05-11 08:42 | disposition home or self-care (01) | LOC: AMB 05-23 02:17 | PROVIDERS: PCP Family Medicine; Visit Provider Family Medicine | DX: R06.09 Other forms of dyspnea (principal) | CPT/HCPCS: A0425; A0429 ==

== ENCOUNTER 2024-05-11 09:09 | Emergency (ER) | payer MEDICARE, MEDICAID, SELFPAY ==
[2024-05-11] VITALS (22 sets, daily range): BP systolic 48–123; BP diastolic 28–66; PULSE 101–124; RESP 17–28; TEMP 37.3; O2SAT 83–97; BMI 39.9
--- NOTE | 2024-05-11 09:14 | ED_ITS ---
HPI - General Adult General Time Seen by Provider: 09:15 Date Seen: 05/11/24 Chief complaint: Shortness of Breath/Dyspnea Stated complaint: Weakness Time Seen by Provider: 05/11/24 09:14 Source: patient, EMS and RN notes reviewed Mode of arrival: EMS Limitations: no limitations History of Present Illness HPI narrative: This 63-year-old male is brought in by EMS from [place] with respiratory distress. They were dispatched to [place] again today, I had seen patient yesterday for increased weakness. He had had a negative triple viral swab yesterday. He had a a workup for possible stroke including head CT, CT angiogram of head and neck as well as noncontrast MR brain without any identifiable new stroke etiology. He states he started coughing overnight, feeling short of breath. He has no pain. He reportedly has some underlying COPD but was not wheezing and thus EMS did not do any nebulization, found clear lungs. He had increased work of breathing was found to be in hypoxic range with O2 sats upper 70s, low 80s. He did eventually respond with positioning sitting more upright and non-rebreather facemask. Patient states he has a remote histo ry of smoking, quit 35 years ago. Related Data Home Medications ?Medication ?Instructions ?Recorded ?Confirmed acetaminophen 500 mg tablet 500 mg PO Q6H PRN 05/10/24 05/11/24 aspirin 81 mg tablet,delayed 81 mg PO DAILY 05/10/24 05/11/24 release atorvastatin 40 mg tablet 40 mg PO DAILY 05/10/24 05/11/24 bupropion HCl 150 mg 24 hr tablet, 150 mg PO DAILY 05/10/24 05/11/24 extended release carvedilol 6.25 mg tablet 6.25 mg PO BID 05/10/24 05/11/24 cholecalciferol (vitamin D3) 25 25 mcg PO DAILY 05/10/24 05/11/24 mcg (1,000 unit) tablet clopidogrel 75 mg tablet 75 mg PO DAILY 05/10/24 05/11/24 empagliflozin 25 mg tablet 25 mg PO DAILY 05/10/24 05/11/24 (Jardiance) escitalopram oxalate 20 mg tablet 20 mg PO DAILY 05/10/24 05/11/24 furosemide 20 mg tablet 20 mg PO DAILY 05/10/24 05/11/24 gabapentin 300 mg capsule 300 mg PO DAILY 05/10/24 05/11/24 lisinopril 5 mg tablet 5 mg PO DAILY 05/10/24 05/11/24 multivitamin with folic acid 400 1 tab PO DAILY 05/10/24 05/11/24 mcg tablet (Tab-A-Myron) omega-3 300 mg-dha 120 mg-epa 180 cap PO 05/10/24 mg-fish oil 1,000 mg capsule trazodone 100 mg tablet 100 mg PO DAILY 05/10/24 05/11/24 umeclidinium 62.5 mcg/actuation 1 inh inhalation DAILY 05/10/24 05/11/24 blister powder for inhalation (Incruse Ellipta) urea 20 % topical cream 1 applic topical 05/10/24 Allergies Allergy/AdvReac Type Severity Reaction Status Date / Time doxycycline Allergy Unknown Verified 05/11/24 10:36 tetracycline Allergy Unknown Verified 05/11/24 10:36 Review of Systems Status of ROS: Reports: 6 or more systems reviewed and unremarkable except as noted in History and below [facility] Medical History Hemiplegia and hemiparesis following cerebral infarction affecting right dominant side ?I69.351 - Hemiplegia and hemiparesis following cerebral infarction affecting right dominant side (ICD-10) Hypertension ?I10 - Essential (primary) hypertension (ICD-10) History of fall ?Z91.81 - History of falling (ICD-10) Hyperlipidemia ?E78.5 - Hyperlipidemia, unspecified (ICD-10) Obesity ?E66.9 - Obesity, unspecified (ICD-10) Type 2 diabetes mellitus ?E11.9 - Type 2 diabetes mellitus without complications (ICD-10) Surgical History Status post aorto-coronary artery bypass graft ?Z95.1 - Presence of aortocoronary bypass graft (ICD-10) Social History Smoking Status: Former smoker Non-prescribed substance use: denies use Exam Const: Vital Signs, click to edit/add: Vital Signs - 24 hr 05/11/24 09:15 05/11/24 09:15 05/11/24 09:20 Temperature 99.1 F Pulse Rate Pulse Rate [Pulse Oximeter] 124 H Respiratory Rate 21 Blood Pressure Blood Pressure [Ri ght Upper Arm] 123/66 Pulse Oximetry 86 L 86 L 83 L Oxygen Delivery Me thod Nasal Cannula Room Air Oxygen Flow Rate 4 Fraction of Inspir ed Oxygen 05/11/24 09:20 05/11/24 09:30 05/11/24 09:45 Temperature Pulse Rate 123 H 121 H 119 H Pulse Rate [Pulse Oximeter] Respiratory Rate 23 28 H 26 H Blood Pressure 123/66 Blood Pressure [Ri ght Upper Arm] Pulse Oximetry 86 L 86 L 87 L Oxygen Delivery Me thod Nasal Cannula OxyMask OxyMask Oxygen Flow Rate 4 10 10 Fraction of Inspir ed Oxygen 05/11/24 09:47 05/11/24 09:50 05/11/24 09:53 Temperature Pulse Rate 118 H 118 H 116 H Pulse Rate [Pulse Oximeter] Respiratory Rate 26 H 25 H 28 H Blood Pressure 64/28 L 57/36 L 48/32 L Blood Pressure [Ri ght Upper Arm] Pulse Oximetry 87 L 88 88 Oxygen Delivery Me thod OxyMask OxyMask OxyMask Oxygen Flow Rate 10 10 10 Fraction of Inspir ed Oxygen 05/11/24 10:04 05/11/24 10:08 05/11/24 10:11 Temperature Pulse Rate 112 H 112 H 110 H Pulse Rate [Pulse Oximeter] Respiratory Rate 26 H Blood Pressure 103/44 L 64/40 L 79/66 L Blood Pressure [Ri ght Upper Arm] Pulse Oximetry 88 84 L 90 Oxygen Delivery Me thod BiPAP BiPAP BiPAP Oxygen Flow Rate Fraction of Inspir ed Oxygen 05/11/24 10:15 05/11/24 10:17 05/11/24 10:19 Temperature Pulse Rate 109 H 109 H 109 H Pulse Rate [Pulse Oximeter] Respiratory Rate Blood Pressure 49/35 L 64/42 L Blood Pressure [Ri ght Upper Arm] Pulse Oximetry 91 86 L 89 Oxygen Delivery Me thod BiPAP BiPAP BiPAP Oxygen Flow Rate Fraction of Inspir ed Oxygen 70 70 70 05/11/24 10:22 05/11/24 10:23 05/11/24 10:27 Temperature Pulse Rate 106 H 106 H Pulse Rate [Pulse Oximeter] Respiratory Rate Blood Pressure 66/32 L 57/40 L Blood Pressure [Ri ght Upper Arm] Pulse Oximetry 95 92 Oxygen Delivery Me thod BiPAP BiPAP Oxygen Flow Rate Fraction of Inspir ed Oxygen 70 70 70 05/11/24 10:31 05/11/24 10:36 05/11/24 10:41 Temperature Pulse Rate 103 H 102 H 102 H Pulse Rate [Pulse Oximeter] Respiratory Rate Blood Pressure 62/44 L 74/45 L 75/48 L Blood Pressure [Ri ght Upper Arm] Pulse Oximetry 91 94 96 Oxygen Delivery Me thod BiPAP BiPAP BiPAP Oxygen Flow Rate Fraction of Inspir ed Oxygen 70 70 70 05/11/24 10:46 05/11/24 10:51 05/11/24 10:56 Temperature Pulse Rate 102 H 101 H 102 H Pulse Rate [Pulse Oximeter] Respiratory Rate 17 Blood Pressure 100/57 L 95/55 L 97/54 L Blood Pressure [Ri ght Upper Arm] Pulse Oximetry 97 96 95 Oxygen Delivery Me thod BiPAP BiPAP BiPAP Oxygen Flow Rate Fraction of Inspir ed Oxygen 50 50 50 05/11/24 11:03 Temperature Pulse Rate 105 H Pulse Rate [Pulse Oximeter] Respiratory Rate Blood Pressure 103/60 Blood Pressure [Ri ght Upper Arm] Pulse Oximetry 97 Oxygen Delivery Me thod BiPAP Oxygen Flow Rate Fraction of Inspir ed Oxygen 50 This 63-year-old male comes in with a non-rebreather, he is alert, interactive, seems like his face is flushed compared to yesterday, skin feels warmer, mildly moist. No skin rash noted. After transfer, his non-rebreather is off just shortly, with a good pulse oximetry waveform, he is already down do 88-89%. Respiratory therapy is present, will start some supplemental oxygen and titrate as needed to the lowest level of oxygen that is satisfactory. He does sound like he has some upper airway mucus or fluid. On auscultation, lungs actually do not sound like there is significant crackles. I can hear better on the right side and lung certainly are clear anteriorly and along the axilla. Left side lung sounds less defined but do sound clear. CV fast regular somewhat distant heart sounds, no murmur noted. Abdomen is soft, nontender, nondistended, no organomegaly. Course Course ED Course: Will get a portable chest x-ray, have ordered a significant complement of labs looking at cardiac etiologies, pulmonary, infectious. Will repeat the triple viral swab. He will be on pulse oximetry, cardiac monitoring, supplemental oxygen. He certainly does not require intubation at this time based on clinical evaluation. Will be looking at venous blood gas. Also obtaining D-dimer, get chest CT PE protocol if elevated or if felt clinically indicated after evaluation here to rule out pulmonary embolus. At this time I do suspect infectious etiology and do wonder if this potentially could not be COVID or influenza and patient was seen with some prodromal weakness yesterday. Reevaluation(s) Time of Reevaluation #1: 09:36 Reevaluation #1: Lactate has returned at 4.4. Was elevated yesterday but glucose was quite high. Will initiate a L of fluids over 1 hour. There may be some congestive changes on his chest x-ray, do not want of fluid overload at this point. I still suspect infectious etiology. Blood pressure is stable at this time, he is tachycardic but has low-grade temps of 99 on arrival. Time of Reevaluation #2: 09:55 Reevaluation #2: Was contacted by nursing staff that patient's pressures were dropping. They had had 3 subsequent pressures going from systolics of 60s with most current 1 down to 48/32. His current pulse is 115. They are just finishing putting the Neli in place and obtaining a urinalysis. Have asked staff to contact pharmacy to get to the Zosyn and the vancomycin down here [facility]. His 1st normal saline L has been open and wide, 2nd IV is being established and we will start a 2 L. we are starting Levophed as well. Patient initially was in Trendelenburg, states he is lightheaded but still seems to be lucid with us. At 10:05 a.m. his blood pressure had improved a bit to 103/44, pulse 111-112. We are looking for placement for this patient. Presumably he is in septic shock from respiratory source. He is not stable to go for CT imaging at this time. Time of Reevaluation #3: 10:45 Reevaluation #3: [facility] is on the phone to get nursing report. They will be able to accept this patient. The program in the pump unfortunately was not correct for the norepinephrine initially. This has been corrected. Patient was started at 0.01 instead of 0.1 mcg per kilos per minute per nursing staff report. He is on BiPAP, states he is still feeling lightheaded and tired but is still lucid. Pressures are improving with the correct dosing of the norepinephrine. Additional Reevaluation(s): 11:02 a.m.: Have spoken with the regulatory affairs manager again. He is wondering about a RV assessment, I do not feel confident in my skill level in this barrel-chested patient to be able to assess that. Discussed with him a 1 solitary dose of Lovenox but patient is in acute kidney injury. We discussed starting heparin but given that the patient's transfers imminent, he would like to hold off on this. Patient's pulse is improving with the BiPAP and stabilization of his pressures with Levophed. Consultations Consultation #1: Have spoken to [facility] regulatory affairs manager Dr. Smith. He does accept this patient, there may be up to an 8 hour bed weight. He understands that we may continue to look for alternate I see use or step Downs depending on facility capacity. We will certainly let them know if we do find something else but in the meantime plan will be to transfer to [facility]. Time: 10:08 Consultation #2: Did contact [facility], spoke with Madeleine CABRERA in the transfer center. She believes they might be on medical ICU diversion but is going to talk to the regulatory affairs manager. Did call Madeleine back, they indeed RN medical ICU diversion. Let her know that we do not need to be considered as [facility] will be taking this patient shortly. Time: 10:29 Vital Signs Vital signs: Initial Vital Signs Pulse Oximetry 86 L 05/11/24 09:15 Oxygen Delivery Method Nasal Cannula 05/11/24 09:15 Oxygen Flow Rate 4 05/11/24 09:15 Vital Signs Pulse Oximetry 86 L 05/11/24 09:15 Oxygen Delivery Method Nasal Cannula 05/11/24 09:15 Oxygen Flow Rate 4 05/11/24 09:15 Temperature 99.1 F 05/11/24 09:20 Pulse Rate 105 H 05/11/24 11:03 Respiratory Rate 17 05/11/24 10:46 Blood Pressure 103/60 05/11/24 11:03 Pulse Oximetry 97 05/11/24 11:03 Oxygen Delivery Method BiPAP 05/11/24 11:03 Oxygen Flow Rate 10 05/11/24 09:53 Fraction of Inspired Oxygen 50 05/11/24 11:03 Medications Administered Medications: Generic Name Dose Route Start Last Admin Trade Name Freq PRN Reason Stop Dose Admin Vancomycin HCl 2,000 mg/ 520 mls @ 260 mls/hr 05/11/24 09:48 05/11/24 10:15 Sodium Chloride IVPB 05/11/24 11:47 260 mls/hr ONCE ONE Administration Protocol Norepinephrine/Dextrose 4,000 mcg in 250 mls @ 45.926 mls/hr 05/11/24 10:30 05/11/24 10:41 Norepinephrine Infusion IV 0.15 mcg/kg/min CONT RISSA 68.89 mls/hr Titration Protocol 0.1 MCG/KG/MIN IV Miscellaneous Supplies 1 each 05/11/24 09:50 05/11/24 10:15 Pharmacist Consult 1 each Q24H RISSA Administration Protocol Discontinued Medications Generic Name Dose Route Start Last Admin Trade Name Freq PRN Reason Stop Dose Admin Sodium Chloride 1,000 mls @ 500 mls/hr 05/11/24 09:37 05/11/24 11:13 0.9 % Sodium Chloride 1000 Ml IV 05/11/24 11:36 Infused .Q2H RISSA Infusion Sodium Chloride 1,000 mls @ 1,000 mls/hr 05/11/24 10:27 05/11/24 11:13 0.9 % Sodium Chloride 1000 Ml IV 05/11/24 11:26 Infused .Q1H RISSA Infusion Piperacillin Sod/Tazobactam Sod 4.5 gm 05/11/24 10:15 05/11/24 10:09 Piperacillin/Tazobactam 4.5 Gm Inj IVPB 05/11/24 10:16 4.5 gm ONCE ONE Administration Medical Decision Making Medical Records Medical records reviewed: Yes I reviewed the patient's medical records Medical records narrative: In 2019, patient's chest x-ray was similar. At that time he was in septic shock with acute renal failure with creatinine 8.4. He ended up intubated, on Levophed and was transferred to [facility]. In that note patient is noted to have a left hemispheric stroke with right hemiparesis, history of prior stroke in 2008 with no documentation of details. He is also known to have coronary artery disease with 5 stents. He has had a prior appendectomy and cholecystectomy. Lab Data Lab results reviewed: Yes I reviewed the patient's lab results Lab results narrative: White blood count is up from 10,610, absolute neutrophil count is further elevated as well with it being 8400 yesterday. His arrival venous blood gas is looking stable. Patient is showing an acute kidney injury with creatinine at 2.6, was 1.3 yesterday. Do see that his D-dimer has come back at 9.39 and will page the regulatory affairs manager quickly, see if he wants heparin started. Glucose is at 378, better than it was yesterday. Procalcitonin is up at 15.8, troponin I mildly elevated at 0.09. This likely reflects his septic shock and strain, not active MT. Labs: Lab Results 05/11/24 05/11/24 05/11/24 Range/Units 09:25 09:55 Unknown WBC 17.82 H (4.50-11.00) K/uL RBC 5.95 H (4.30-5.90) m/uL Hgb 17.3 (13.5-17.5) gm/dL Hct 52.7 (37.0-53.0) % MCV 89 (80-100) fL MCH 29 (26-34) pg MCHC 33 (32-36) gm/dL RDW Coeff of Regis 13.1 (11.5-15.5) % Plt Count 215 (140-440) K/uL Neut % (Auto) 85.7 H (42.0-72.0) % Lymph % (Auto) 6.2 L (20-44) % [place] % (Auto) 7.7 (0.0-11.0) % Eos % (Auto) 0.1 (0.0-7.0) % Baso % (Auto) 0.1 (0.0-3.0) % Neut # (Auto) 15.30 H (1.7-7.0) K/uL Lymph # (Auto) 1.10 (0.90-2.90) K/uL [place] # (Auto) 1.40 H (0.00-0.90) K/UL Eos # (Auto) 0.00 (0.00-0.50) K/uL Baso # (Auto) 0.00 (0.00-0.30) K/uL Abs Immat Gran (auto) 0.00 (0.00-0.30) K/uL Imm/Tot Granulo (auto) 0.2 % D-Dimer Quant (PE/DVT) 9.39 H (0.00-0.50) ug/ml VBG pH 7.357 (7.32-7.43) VBG pCO2 37 L (40-50) mmHG VBG pO2 46.4 (25-47) mmHG VBG HCO3 21 (21-28) mmol/L Sodium 133 L (135-149) mmol/L Potassium 4.4 (3.6-5.1) mmol/L Chloride 100 (96-114) mmol/L Carbon Dioxide 19 L (20-32) mmol/L Anion Gap 14 (7-15) mEq/L BUN 52 H (7-30) mg/dL Creatinine 2.6 H (0.5-1.5) mg/dL Estimated GFR 27 ml/min Glucose 378 H* (60-115) mg/dL Lactate 4.4 H* (0.5-1.9) mmol/L Calcium 8.8 (8.4-10.6) mg/dL Total Bilirubin 0.9 (0.1-1.5) mg/dL AST 41 H (12-35) U/L ALT 33 (4-50) U/L Alkaline Phosphatase 132 (40-150) U/L Troponin I 0.09 H* (0.01-0.04) ng/mL C-Reactive Protein 5.3 H (0.5-1.0) mg/dL NT-Pro-B Natriuret Pep 648 pg/mL Total Protein 6.7 (6.0-8.3) g/dL Albumin 4.0 (3.3-5.0) g/dL Procalcitonin 15.80 H (<0.50) ng/mL Urine Color Yellow (Yellow) Urine Appearance Clear (Clear) Urine pH 5.0 (5.0-8.5) Ur Specific [place] 1.010 (1.000-1.030) Urine Protein Negative (Negative) Urine Glucose (UA) 2+ A (Negative) Urine Ketones Negative (Negative) Urine Blood Trace-intact A (Negative) Urine Nitrite Negative (Negative) Urine Bilirubin Negative (Negative) Urine Urobilinogen 0.2 (0.2-1.0) Ur Leukocyte Esterase Negative (Negative) Urine RBC 0-2 (0-2) Urine WBC 5-10 A (0-5) Ur Squamous Epith Cells Few (None-Few) Urine Bacteria Few A (None) SARS-CoV-2 (PCR) Negative SARS-CoV-2 (Negative) Influenza Type A (PCR) Negative PCR FLU A (Negative) Influenza Type B (PCR) Negative PCR FLU B (Negative) RSV (PCR) Negative PCR RSV (Negative) Imaging Data Chest x-ray: Attestation: I have reviewed the pertinent imaging results. My impression: Does seem to have some congestive changes. Radiologist's impression: Patient: CHUN CARVAJAL Facility:?[facility] Patient ID:?[id number] Site Patient ID:?[id number]. Site :?[id number] Study:?XRay-Chest Portable-05/11/2024 9:27:16 AM Ordering Physician:?Esther Hagan Final Report: Indication: : Respiratory distress TECHNIQUE: Single-view chest. FINDINGS: Enlarged cardiac silhouette. Interstitial opacities probably reflect pulmonary edema basilar atelectasis. No large effusion or pneumothorax. Dictated by Shelia Orellana MD @ 05/11/2024 10:08:24 AM (Electronic Signature) ECG Data Attestation: I personally reviewed and interpreted this ECG as follows: (Sinus tachycardia, 115 beats per minute. Right bundle branch block. Artifact seen. Flipped T-waves lead 3 and AVF, not new.) Prior ECG tracings: available for review (Compared to yesterday, ongoing flipped T-waves in 3 and AVF, less prominent today.) Critical Care Time Critical Care Time Critical Care Time: Yes Attestation: The patient required my highest level preparedness to intervene emergently and I personally spent this critical care time directly and personally managing the patient. This critical care time included: Obtaining a history; Examining the patient; Pulse oximetry; Ordering and reviewing of studies; Arranging urgent treatment with development of a management plan; Evaluation of patients response to treatment; Frequent reassessment discussions with other providers. This critical care time was performed to assess and manage the high probability of imminent life-threatening deterioration that could result in multiorgan failure. It was exclusive of separate billable procedures and treating other patients and teaching time. Total Critical Care Time in Minutes: 150 Discharge Plan Discharge Clinical Impression: Acute hypoxemic respiratory failure, Septic shock, Acute kidney injury Diabetes mellitus with hyperglycemia Qualifiers: Diabetes mellitus type: type 2 Diabetes mellitus intermediate insulin use: unspecified terminal worker insulin use status Qualified Code(s): E11.65 - Type 2 diabetes mellitus with hyperglycemia Patient Disposition: Xfer [facility] Discharge Location: [facility] Condition: Critical Prescriptions: No Action urea 20 % cream 1 applic topical aspirin 81 mg tablet,delayed release (DR/EC) 81 mg PO DAILY acetaminophen 500 mg tablet 500 mg PO Q6H PRN cholecalciferol (vitamin D3) 25 mcg (1,000 unit) tablet 25 mcg PO DAILY multivitamin with folic acid [Tab-A-Myron] 400 mcg tablet 1 tab PO DAILY omega 0-rtj-jvb-fish oil 300 mg (120 mg- 180mg)-1,000 mg capsule PO atorvastatin 40 mg tablet 40 mg PO DAILY bupropion HCl 150 mg tablet extended release 24 hr 150 mg PO DAILY carvedilol 6.25 mg tablet 6.25 mg PO BID Rx Instructions: must administer with a meal/food clopidogrel 75 mg tablet 75 mg PO DAILY escitalopram oxalate 20 mg tablet 20 mg PO DAILY furosemide 20 mg tablet 20 mg PO DAILY gabapentin 300 mg capsule 300 mg PO DAILY Incruse Ellipta 62.5 mcg/actuation blister with device 1 inh inhalation DAILY Jardiance 25 mg tablet 25 mg PO DAILY lisinopril 5 mg tablet 5 mg PO DAILY trazodone 100 mg tablet 100 mg PO DAILY Stand Alone Forms: [facility] Info Instructions
--- NOTE | 2024-05-11 09:15 | CRLHL7_ITS ---
For Patients: As a result of the Century Cures Act, medical imaging exams and procedure reports are released immediately into your electronic medical record. You may view this report before your referring provider. If you have questions, please contact your health care provider. Indication: : Respiratory distress TECHNIQUE: Single-view chest. FINDINGS: Enlarged cardiac silhouette. Interstitial opacities probably reflect pulmonary edema basilar atelectasis. No large effusion or pneumothorax. Dictated by Shelia Orellana MD @ 05/11/2024 10:08:24 AM (Electronically Signed)
[2024-05-11 09:33] LABS: HCO3 VBG 21 mmol/L (21-28); PCO2 VBG 37 mmHG (40-50); PO2 VBG 46.4 mmHG (25-47); pH VBG 7.357 (7.32-7.43)
[2024-05-11 09:34] LABS: Basophils Percent Auto 0.1 % (0.0-3.0); Eosinophils Percent Auto 0.1 % (0.0-7.0); Hematocrit 52.7 % (37.0-53.0); Hemoglobin* 17.3 gm/dL (13.5-17.5); Immature Granulocytes Pct Auto 0.2 %; Lymphocytes Percent Auto 6.2 % (20-44); Mean Corpuscular HGB Conc 33 gm/dL (32-36); Mean Corpuscular Hemoglobin 29 pg (26-34); Mean Corpuscular Volume 89 fL (80-100); Monocytes Percent Auto 7.7 % (0.0-11.0); Neutrophils Percent Auto 85.7 % (42.0-72.0); Platelet Count* 215 K/uL (140-440); RDW Coefficient of Variation % 13.1 % (11.5-15.5); Red Blood Count 5.95 m/uL (4.30-5.90); White Blood Count* 17.82 K/uL (4.50-11.00)
[2024-05-11 09:35] LABS: Lactate* 4.4 mmol/L (0.5-1.9); Slide Review Reflex No
[2024-05-11] MEDS: 0.9 % SODIUM CHLORIDE 1000 ml 1,000 ML 500 ML IV (09:46)
[2024-05-11 09:56] LABS: Chloride* 100 mmol/L (96-114)
[2024-05-11 09:57] LABS: Potassium* 4.4 mmol/L (3.6-5.1); Sodium* 133 mmol/L (135-149)
[2024-05-11 09:59] LABS: Bilirubin Total* 0.9 mg/dL (0.1-1.5); Creatinine* 2.6 mg/dL (0.5-1.5); Estimated Glomerular Filt Rate 27 ml/min
[2024-05-11 10:00] LABS: Alanine Aminotransferase* 33 U/L (4-50); Alkaline Phosphatase* 132 U/L (40-150); Anion Gap 14 mEq/L (7-15); Aspartate Amino Transferase* 41 U/L (12-35); Blood Urea Nitrogen* 52 mg/dL (7-30); Calcium* 8.8 mg/dL (8.4-10.6); Carbon Dioxide* 19 mmol/L (20-32); Total Protein* 6.7 g/dL (6.0-8.3)
[2024-05-11 10:00] LABS: Appearance Urine Clear (Clear); Bilirubin Urine Negative (Negative); Blood Urine Trace-intact (Negative); Color Urine Yellow (Yellow); Glucose Urine 2+ (Negative); Ketones Urine Negative (Negative); Leukocyte Esterase Urine Negative (Negative); Nitrite Urine Negative (Negative); Protein Urine Negative (Negative); Urobilinogen Urine 0.2 (0.2-1.0)
[2024-05-11 10:02] LABS: PCR FLU A Negative PCR FLU A (Negative); PCR FLU B Negative PCR FLU B (Negative); PCR RSV Negative PCR RSV (Negative); SARS PCR* Negative SARS-CoV-2 (Negative)
[2024-05-11 10:03] LABS: C Reactive Protein* 5.3 mg/dL (0.5-1.0)
[2024-05-11] MEDS: 0.9 % SODIUM CHLORIDE 1000 ml 1,000 ML IV (10:10)
[2024-05-11 10:19] LABS: Bacteria Urine Few; RBC Urine 0-2 (0-2); Squamous Epithelial Cell Urine Few (None-Few)
[2024-05-11 10:19] LABS: D Dimer Quantitative* 9.39 ug/ml (0.00-0.50)
[2024-05-11 10:21] LABS: Glucose* 378 mg/dL (60-115)
[2024-05-11 10:22] LABS: NT Pro B Type NatriureticPept* 648 pg/mL; Troponin I* 0.09 ng/mL (0.01-0.04)
--- OUTSIDE RECORDS SUMMARY | 2024-05-11 10:31 | XMS_ITS | Clinical Summary ---
Author Organization [facility] Address [place], [place] [address] Care Team Providers Care Client Service Supervisor Name Role Phone Unavailable Primary Care Provider [...] MEAL 90 Tablet 2 06/17/19 23 Active [id number] ons:Nutritional deficiency TAKE 1 TABLET BY MOUTH [...] Encounters Date Type Department Care Team Description 05/11/2024 6:00 PM JAVA DEVELOPER ARCHITECT Hospital Encounter [facility] [address] [place], [place] [id number] Yadira Smith MD 05/10/2024 Office Visit [facility] [address] [place] [address] [place] [employer] ([facility]) from Last 3 Months Immunizations Name Administration [...] on file Legal Sex Male 7:38 AM JAVA DEVELOPER ARCHITECT Gender Identity Not on file Sexual Orientation Not on file Occupation Industry Job Start Date Job End Date [employer] Not on file Not on file Not [...] 185.4 cm (6' 1) 06/02/2021 8:26 AM JAVA DEVELOPER ARCHITECT Body Mass Index 35.83 06/02/2021 8:26 AM JAVA DEVELOPER ARCHITECT Plan of Treatment Health Maintenance Due Date [...] 06/02/2022 06/02/2021, 11/21/2019 COVID-19 vaccine series ( season) 2024 03/15/2021, 06/18/2020, 05/21/2020 Influenza for [...] REFLEX MEASURED LDL Routine 06/02/2021 9:09 AM JAVA DEVELOPER ARCHITECT Controlled type 2 diabetes mellitus without complication, without long-term current use of insulin (HC) ANTI HCV Routine 12/24/2020 11:23 AM CDT Need for hepatitis C screening test from Last 3 Months or Most Recently Relevant to Health Maintenance Results * (ABNORMAL) LIPID PANEL W REFLEX MEASURED LDL (06/02/2021 9:09 AM JAVA DEVELOPER ARCHITECT) CHOLESTEROL,TOTAL 176 100 - 199 mg/dL 06/02/2021 2:14 PM JAVA DEVELOPER ARCHITECT [facility] TRIGLYCERIDES 324(H) <150 mg/dL 06/02/2021 2:14 PM [facility] HDL CHOLESTEROL 40(L) >40 mg/dL 2:14 PM [facility] NON-HDL CHOLESTEROL 136 <145 mg/dl 06/02/2021 2:14 PM [facility] CHOL/HDL RATIO 4.40 <4.50 06/02/2021 2:14 PM [facility] LDL CHOLESTEROL 71 <=130 mg/dL 06/02/2021 2:14 PM [facility] VLDL CHOLESTEROL 65(H) <=30 mg/dL 06/02/2021 2:14 PM [facility] PROVIDER ORDERED STATUS RANDOM 06/02/2021 2:14 PM [facility] Blood BLOOD SPECIMEN / Unknown Venipuncture / Unknown 06/02/2021 9:09 AM JAVA DEVELOPER ARCHITECT 06/02/2021 9:09 AM JAVA DEVELOPER ARCHITECT us Dillan Browne MD CHEMISTRY Final Result [facility] [address] [place] [address], * ANTI HCV (12/24/2020 11:23 AM CDT) HEPATITIS C ANTIBODY Non-React hattie Non-React hattie 12/24/2020 9:01 PM CDT [facility] Comment:Antibodies to HCV no t detected; does not exclude the possibility of exposure to HCV. Blood BLOOD SPECIMEN / Unknown Venipuncture / Unknown 12/24/2020 11:23 AM CDT 12/24/2020 11:27 AM CDT us Dillan Browne MD SEND OUTS Final Result [facility] [address] [place] [address], [place] from Last 3 Months or Most Recently [...] 12 months since positive culture): resides in acute/[facility] care, receiving hemodialysis, has chronic open wounds/skin damage, has long-term percutaneous indwelling medical devices Exclusions for nares collection (if <12 months since positive culture) include all of the previous exclusions plus patients on antibiotics 7 days prior to collection 12/27/2019 12/27/2019 Insurance MEDICARE PB ONLY MEDICARE PART A HB ONLY [facility] PLUS Advance Directives Documents on File Type Date Recorded Patient Train Director Expl anation Treatment Guidelines 12/24/2019 * Full Code (Latest Code Status on File) Date Activated Date Inactivated Comments 12/27/2019 1:36 PM 01/08/2020 12:53 PM Question Answer Comments Code Status Discussion: Not Discussed * Full Code Date Activated Date Inactivated Comments 12/01/2008 2:29 PM 12/02/2008 9:17 PM
== END 2024-05-11 11:25 | disposition short-term general hospital (02) ==
PROVIDERS: Emergency Provider Family Medicine; PCP Family Medicine
DX: A41.9 Sepsis, unspecified organism (principal); R65.21 Severe sepsis with septic shock; N17.9 Acute kidney failure, unspecified; J96.01 Acute respiratory failure with hypoxia; E11.65 Type 2 diabetes mellitus with hyperglycemia
CPT/HCPCS: 36415; 71045; 80053; 81001; 82803; 83605; 83880; 84145; 84484; 85025; 85379; 86140; 87040; 87086; 87186; 87631; 93005; 94660; 94761; 99284; 99291; 99292; J2543; J3370; J7030

== ENCOUNTER 2024-05-11 11:20 | Outpatient (CLI) | payer MEDICARE, MEDICAID, SELFPAY | END 2024-05-11 11:21 | disposition home or self-care (01) | PROVIDERS: PCP Family Medicine; Visit Provider Family Medicine | DX: J96.01 Acute respiratory failure with hypoxia (principal); R65.21 Severe sepsis with septic shock; N17.9 Acute kidney failure, unspecified | CPT/HCPCS: A0425; A0434 ==

== ENCOUNTER 2024-06-07 07:58 | Outpatient (CLI) | payer MEDICARE, MEDICAID, SELFPAY | END 2024-06-07 07:59 | disposition home or self-care (01) | LOC: AMB 06-20 03:21 | PROVIDERS: PCP Family Medicine; Visit Provider Internal Medicine | DX: R56.9 Unspecified convulsions (principal) | CPT/HCPCS: A0425; A0427 ==

== ENCOUNTER 2024-06-07 08:20 | Emergency (ER) | payer MEDICARE, MEDICAID, SELFPAY ==
--- OUTSIDE RECORDS SUMMARY | 2024-06-07 08:22 | XMS_ITS ---
Author Organization [facility] Address Unknown Allergies, Adverse Reactions, Alerts Substance Reaction Status Noted Date Resolved Date Tetracycline active Problems Problem Status Start Date End Date OTHER FRACTURE OF RIGHT LOWE R LEG, SUBSEQUENT ENCOUNTER FOR CLOSED FRACTURE WITH ROUTINE HEALING (Primary) (S82.891D - ICD-10-CM) ACTIVE 12/24/2019 HEMIPLEGIA AND HEMIPARESIS F OLLOWING CEREBRAL INFARCTION AFFECTING RIGHT DOMINANT SIDE (I69.351 - ICD-10-CM) ACTIVE 12/24/19 20 ATHEROSCLEROTIC HEART DISEAS E OF [place] CORONARY ARTERY WITHOUT ANGINA PECTORIS (I25.10 - ICD-10-CM) ACTIVE 12/24/2019 COVID-19 (U07.1 - ICD-10-CM) ACTIVE 03/11/2020 MORBID (SEVERE) OBESITY DUE TO EXCESS CALORIES (E66.01 - ICD-10-CM) ACTIVE 12/24/2019 BODY MASS INDEX [BMI] 35.0-3 5.9, ADULT (Z68.35 - ICD-10-CM) ACTIVE 12/24/2019 TYPE 2 DIABETES MELLITUS WIT HOUT COMPLICATIONS (E11.9 - ICD-10-CM) ACTIVE 12/24/2019 ESSENTIAL (PRIMARY) HYPERTENSION (I10 - ICD-10-CM) ACT LUCIANA 12/24/2019 HYPERLIPIDEMIA, UNSPECIFIED (E78.5 - ICD-10-CM) ACTIVE 12/24/2019 INSOMNIA, UNSPECIFIED (G47.00 - ICD-10-CM) ACTIVE 12/24/2019 HISTORY OF FALLING (Z91.81 - ICD-10-CM) ACTIVE 0 12/24/2019 CONSTIPATION, UNSPECIFIED (K59.00 - ICD-10-CM) ACTIVE 12/24/2019 MAJOR DEPRESSIVE DISORDER, S AWILDA EPISODE, UNSPECIFIED (F32.9 - ICD-10-CM) ACTIVE 12/24/2019 PRESENCE OF CORONARY ANGIOPL ASTY IMPLANT AND GRAFT (Z95.5 - ICD-10-CM) ACTIVE 12/24/2019 Encounters Encounter Performer Performer Role Encounter Diagnoses Location Date [facility] 12/24/2019 03:55 pm EDT - 12/27/2019 09:30 am EDT Discharge - Discharged / Transferred to another type of institution - Other Assisted Living [facility] 01/08/2020 12:58 pm EDT - 04/27/2020 11:30 am EST Reason For Referral Respiratory Infection Immunizations Vaccine Date Influenza 02/10/2020 03:00 pm EDT Influenza 02/25/2019 01:00 am EDT TB 2 Step Mantoux Skin Test 12/25/2019 0 8:50 pm EDT PPSV23, Pneumovax 23 08/09/2010 01:00 am EDT PCV13, [id number] Social History
[2024-06-07 08:23] VITALS: BP 175/124; PULSE 122; RESP 30; TEMP 37.4; O2SAT 90
[2024-06-07 08:25] VITALS: O2SAT 95
[2024-06-07] MEDS: 0.9 % SODIUM CHLORIDE 1000 ml 1,000 ML IV ×2 (08:25→09:31)
--- NOTE | 2024-06-07 08:28 | CRLHL7_ITS ---
For Patients: As a result of the Cures Act, medical imaging exams and procedure reports are released immediately into your electronic medical record. You may view this report before your referring provider. If you have questions, please contact your health care provider. INDICATION: Shortness of breath. COMPARISON: 05/11/2024 TECHNIQUE: 1 view. FINDINGS: Medical Devices: The tip of an endotracheal tube ends at the level of the thoracic inlet. The arsen is difficult to identified. Tube is superimposed upon the right 3rd thoracic vertebra. Lung Volumes: Low lung volumes. Lungs: Low lung volumes limit interpretation. Prominent central pulmonary vascular markings and diffuse bilateral reticular opacities are consistent with pulmonary venous congestion and interstitial edema. Pleura and Pleural spaces: No significant pleural effusion. No pneumothorax. Mediastinum: AP technique and low lung volumes accentuate the transverse dimension of the cardiomediastinal silhouette which is unchanged. Bony Thorax and Soft Tissues: No significant interval findings. Chronic healed fracture deformity of the left clavicle. IMPRESSION: 1. The tip of an endotracheal tube ends at the level of the thoracic inlet. The arsen is difficult to identified. Tube is superimposed upon the right 3rd thoracic vertebra. 2. Low lung volumes limit interpretation. Prominent central pulmonary vascular markings and diffuse bilateral reticular opacities are consistent with pulmonary venous congestion and interstitial edema. Dictated by Sid Alvarado MD @ 06/07/2024 9:26:10 AM (Electronically Signed)
[2024-06-07] MEDS: SUCCINYLCHOLINE 20 MG/ML INJ 100 MG IVP (08:36)
[2024-06-07] MEDS: PROPOFOL 10 MG/ML INJ 90 MG IVP (08:36)
--- NOTE | 2024-06-07 08:39 | ED.GENADULT ---
HPI - General Adult General Chief complaint: Seizure Stated complaint: Seizure Time Seen by Provider: 06/07/24 08:26 Source: EMS Mode of arrival: EMS Limitations: altered mental status History of Present Illness HPI narrative: 63-year-old male with a history of hemiplegia and hemiparesis secondary to CVA, hypertension, obesity, hyperlipidemia, type 2 diabetes was found by nursing staff at [facility] unresponsive and in acute respiratory distress. Ambulance was called and patient was transported. During transport patient had 2 seizures and received 4 mg of IM Versed. Upon arrival patient is able to follow some commands, is not able to talk, and is in acute respiratory distress. Per EMS, glucose in the low 200s. Related Data Home Medications ?Medication ?Instructions ?Recorded ?Confirmed acetaminophen 500 mg tablet 500 mg PO Q6H PRN 05/10/24 05/11/24 aspirin 81 mg tablet,delayed 81 mg PO DAILY 05/10/24 05/11/24 release atorvastatin 40 mg tablet 40 mg PO DAILY 05/10/24 05/11/24 bupropion HCl 150 mg 24 hr tablet, 150 mg PO DAILY 05/10/24 05/11/24 extended release carvedilol 6.25 mg tablet 6.25 mg PO BID 05/10/24 05/11/24 cholecalciferol (vitamin D3) 25 25 mcg PO DAILY 05/10/24 05/11/24 mcg (1,000 unit) tablet clopidogrel 75 mg tablet 75 mg PO DAILY 05/10/24 05/11/24 empagliflozin 25 mg tablet 25 mg PO DAILY 05/10/24 05/11/24 (Jardiance) escitalopram oxalate 20 mg tablet 20 mg PO DAILY 05/10/24 05/11/24 furosemide 20 mg tablet 20 mg PO DAILY 05/10/24 05/11/24 gabapentin 300 mg capsule 300 mg PO DAILY 05/10/24 05/11/24 lisinopril 5 mg tablet 5 mg PO DAILY 05/10/24 05/11/24 multivitamin with folic acid 400 1 tab PO DAILY 05/10/24 05/11/24 mcg tablet (Tab-A-Myron) omega-3 300 mg-dha 120 mg-epa 180 cap PO 05/10/24 mg-fish oil 1,000 mg capsule trazodone 100 mg tablet 100 mg PO DAILY 01/03/25 01/04/25 umeclidinium 62.5 mcg/actuation 1 inh inhalation DAILY 05/10/24 05/11/24 blister powder for inhalation (Incruse Ellipta) urea 20 % topical cream 1 applic topical 05/10/24 Allergies Allergy/AdvReac Type Severity Reaction Status Date / Time doxycycline Allergy Unknown Verified 05/11/24 10:36 tetracycline Allergy Unknown Verified 05/11/24 10:36 Review of Systems Status of ROS: Reports: unobtainable due to medical condition PFSH [facility] Medical History Hemiplegia and hemiparesis following cerebral infarction affecting right dominant side ?I69.351 - Hemiplegia and hemiparesis following cerebral infarction affecting right dominant side (ICD-10) Hypertension ?I10 - Essential (primary) hypertension (ICD-10) History of fall ?Z91.81 - History of falling (ICD-10) Hyperlipidemia ?E78.5 - Hyperlipidemia, unspecified (ICD-10) Obesity ?E66.9 - Obesity, unspecified (ICD-10) Type 2 diabetes mellitus ?E11.9 - Type 2 diabetes mellitus without complications (ICD-10) Surgical History Status post aorto-coronary artery bypass graft ?Z95.1 - Presence of aortocoronary bypass graft (ICD-10) Social History Smoking Status: Former smoker Non-prescribed substance use: denies use Exam Narrative: Exam Narrative: Obese patient in acute respiratory distress with tachypnea, labored breathing and audible wheezing. Patient is not speaking at this point. When asked to squeeze my hands patient is able to do that. He is not able to do really anything else as far as moving extremities. With normal facial symmetry. Patient has a foaming saliva at both corners of his mouth. HEENT: Normocephalic atraumatic. Pupils are equally round reactive to light. Conjunctivae are moist without any icterus noted. Moist mucous membranes with excessive oral secretions present. Posterior pharynx is normal. Cardiovascular: Heart is regular rate and rhythm S1 and S2 are present without any murmurs. Lungs: Diffuse wheezing and rhonchi. Abdomen: Soft, protuberant. Normal bowel sounds. Bruising of the anterior abdominal wall. Extremities: Bilateral lower extremities with trace edema. Skin: Well perfused without any obvious rashes. Const: Vital Signs, click to edit/add: Vital Signs - 24 hr 06/07/24 08:23 06/07/24 11:18 Temperature 99.4 F Pulse Rate [Pulse Oximeter] 122 H Respiratory Rate 30 H 20 Blood Pressure [Ri ght Upper Arm] 175/124 H Pulse Oximetry 90 Oxygen Delivery Me thod Room Air Course Course ED Course: Given the amount of respiratory distress and labored breathing of the patient presented with, I did make the decision to intubate him. Anesthesia was called and intubation was done per the anesthesia team. A portable chest x-ray was obtained that this time which showed low lung volumes and prominent central pulmonary vascular markings in the fuse bilateral reticular opacities consistent with pulmonary venous congestion and interstitial edema. EKG, read by me, shows sinus tachycardia with a pulse of 113, incomplete right bundle-branch block. After intubation, which was accomplished with propofol and succinylcholine, we did give a dose of propofol post intubation and the patient's blood pressure dropped significantly from in the 130 systolic to the 60s systolic. Propofol was held at this time, fluids were started and a loading dose of ketamine was given followed by ketamine drip. Patient continued to bob the ventilator, dose of rocuronium was given while we titrated the ketamine drip. Blood pressures remain quite low despite stopping a propofol all, therefore patient was placed on Levophed and blood pressure did go up into the 1 teens systolic with this treatment. As we reached higher doses of ketamine and patient continue to bob the ventilator we did add a very small dose of propofol drip, blood pressure dropped once again immediately upon initiation of the propofol drip. This was titrated with the Levophed to maintain adequate blood pressures. Unasyn and Keppra also ordered and given. In the meantime, we did have lab results return: WBC 12.6, hemoglobin 17.2. Normal platelet count. D-dimer elevated at 1.49. Chemistries were unremarkable aside from a slightly elevated BUN at 43. Glucose was 216. Lactate elevated at 3.0. Normal LFTs. Troponin elevated 0.25. Triple swab negative. We had called [facility] for transfer and I spoke to Dr. Acuna who accepted the patient. At this time I will not start heparin given that I do not have a head CT on this patient since he has not been stable enough to go to the CT scanner at this time. Given that he was found down there is a potential for an intracranial hemorrhage. Transport arrived before we were able to scan the patient. IV site for Levophed infiltrated. Large area 3 cm in diameter isaiah. Area was treated with topical nitroglycerin and subcutaneous terbutaline. Other differential diagnoses includes acute congestive heart failure, ruptured AAA, encephalopathy, seizure, aspiration pneumonia. Just prior to transport patient's other IV on the left side infiltrated were unable to get another IV in. Therefore an IO was placed per the EMS crew. Levophed was restarted in the IO while propofol and ketamine continued on the other side. He was also given an IV dose of 100 mcg of fentanyl. Blood pressure remained stable with Levophed and propofol titration, along with ketamine. Vital Signs Vital signs: Initial Vital Signs Temperature 99.4 F 06/07/24 08:23 Temperature Source Temporal Artery Scan 06/07/24 08:23 Pulse Rate 122 H 06/07/24 08:23 Respiratory Rate 30 H 06/07/24 08:23 Blood Pressure 175/124 H 06/07/24 08:23 Blood Pressure Mean 141 H 06/07/24 08:23 Pulse Oximetry 90 06/07/24 08:23 Oxygen Delivery Method Room Air 06/07/24 08:23 Vital Signs Temperature 99.4 F 06/07/24 08:23 Pulse Rate 122 H 06/07/24 08:23 Respiratory Rate 30 H 06/07/24 08:23 Blood Pressure 175/124 H 06/07/24 08:23 Pulse Oximetry 90 06/07/24 08:23 Oxygen Delivery Method Room Air 06/07/24 08:23 Temperature 99.4 F 06/07/24 08:23 Pulse Rate 122 H 06/07/24 08:23 Respiratory Rate 20 06/07/24 11:18 Blood Pressure 175/124 H 06/07/24 08:23 Pulse Oximetry 90 06/07/24 08:23 Oxygen Delivery Method Room Air 06/07/24 08:23 Medications Administered Medications: Discontinued Medications Generic Name Dose Route Start Last Admin Trade Name Freq PRN Reason Stop Dose Admin Levetiracetam 2,000 mg/ Sodium 120 mls @ 480 mls/hr 06/07/24 08:40 06/07/24 09:22 Chloride IVPB 06/07/24 08:41 480 mls/hr ONCE ONE Administration Ampicillin Sodium/Sulbactam 100 mls @ 200 mls/hr 06/07/24 08:58 06/07/24 10:15 Sodium 3 gm/ Sodium Chloride IVPB 06/07/24 08:59 200 mls/hr ONCE ONE Administration Medical Decision Making MDM Narrative Medical decision making narrative: 63-year-old male with altered mental status, respiratory failure with hypoxia, sepsis, elevated troponin, seizure. Patient will be transferred to [place] ICU. Lab Data Lab results reviewed: Yes I reviewed the patient's lab results Labs: Lab Results 06/07/24 06/07/24 06/07/24 Range/Units 08:29 08:30 09:30 WBC 12.69 H (4.50-11.00) K/uL RBC 5.91 H (4.30-5.90) m/uL Hgb 17.2 (13.5-17.5) gm/dL Hct 51.8 (37.0-53.0) % MCV 88 (80-100) fL MCH 29 (26-34) pg MCHC 33 (32-36) gm/dL RDW Coeff of Regis 12.8 (11.5-15.5) % Plt Count 222 (140-440) K/uL Neut % (Auto) 72.7 H (42.0-72.0) % Lymph % (Auto) 16.8 L (20-44) % [place] % (Auto) 10.1 (0.0-11.0) % Eos % (Auto) 0.0 (0.0-7.0) % Baso % (Auto) 0.2 (0.0-3.0) % Neut # (Auto) 9.20 H (1.7-7.0) K/uL Lymph # (Auto) 2.10 (0.90-2.90) K/uL [place] # (Auto) 1.30 H (0.00-0.90) K/UL Eos # (Auto) 0.00 (0.00-0.50) K/uL Baso # (Auto) 0.00 (0.00-0.30) K/uL Abs Immat Gran (auto) 0.00 (0.00-0.30) K/uL Imm/Tot Granulo (auto) 0.2 % D-Dimer Quant (PE/DVT) 1.49 H (0.00-0.50) ug/ml Sodium 137 (135-149) mmol/L Potassium 5.1 (3.6-5.1) mmol/L Chloride 101 (96-114) mmol/L Carbon Dioxide 23 (20-32) mmol/L Anion Gap 13 (7-15) mEq/L BUN 43 H (7-30) mg/dL Creatinine 1.2 (0.5-1.5) mg/dL Estimated GFR 67 ml/min Glucose 216 H (60-115) mg/dL Lactate 3.0 H (0.5-1.9) mmol/L Calcium 9.0 (8.4-10.6) mg/dL Magnesium 2.2 (1.5-2.6) mg/dL Total Bilirubin 0.7 (0.1-1.5) mg/dL Direct Bilirubin 0.3 (0.0-0.5) mg/dL AST 31 (12-35) U/L ALT 27 (4-50) U/L Alkaline Phosphatase 141 (40-150) U/L Troponin I 0.25 H* (0.01-0.04) ng/mL C-Reactive Protein 1.7 H (0.5-1.0) mg/dL NT-Pro-B Natriuret Pep 877 pg/mL Total Protein 7.3 (6.0-8.3) g/dL Albumin 4.2 (3.3-5.0) g/dL Procalcitonin 0.20 (<0.50) ng/mL Urine Color Yellow (Yellow) Urine Appearance Clear (Clear) Urine pH 6.0 (5.0-8.5) Ur Specific [place] 1.010 (1.000-1.030) Urine Protein Negative (Negative) Urine Glucose (UA) 2+ A (Negative) Urine Ketones Negative (Negative) Urine Blood Negative (Negative) Urine Nitrite Negative (Negative) Urine Bilirubin Negative (Negative) Urine Urobilinogen 0.2 (0.2-1.0) Ur Leukocyte Esterase Negative (Negative) Urine RBC 0-2 (0-2) Urine WBC 0-2 (0-5) Ur Squamous Epith Cells Few (None-Few) Urine Bacteria None (None) Urine Opiates Screen Negative (Negative) Ur Oxycodone Screen Negative (Negative) Urine Methadone Screen Negative (Negative) Ur Barbiturates Screen Negative (Negative) U Tricyclic Antidepress Negative (Negative) Ur Phencyclidine Scrn Negative (Negative) Ur Amphetamines Screen Negative (Negative) U Methamphetamines Scrn Negative (Negative) U Benzodiazepines Scrn Negative (Negative) Urine Cocaine Screen Negative (Negative) U Marijuana (THC) Screen Negative (Negative) Ur Drug Screen Comment See Note SARS-CoV-2 (PCR) Negative SARS-CoV-2 (Negative) Influenza Type A (PCR) Negative PCR FLU A (Negative) Influenza Type B (PCR) Negative PCR FLU B (Negative) RSV (PCR) Negative PCR RSV (Negative) POC Troponin I 0.18 H (0.01-0.04) ng/ml Imaging Data Chest x-ray: Attestation: I have reviewed the pertinent imaging results. Radiologist's impression: TECHNIQUE: 1 view. FINDINGS: Medical Devices: The tip of an endotracheal tube ends at the level of the thoracic inlet. The arsen is difficult to identified. Tube is superimposed upon the right 3rd thoracic vertebra. Lung Volumes: Low lung volumes. Lungs: Low lung volumes limit interpretation. Prominent central pulmonary vascular markings and diffuse bilateral reticular opacities are consistent with pulmonary venous congestion and interstitial edema. Pleura and Pleural spaces: No significant pleural effusion. No pneumothorax. Mediastinum: AP technique and low lung volumes accentuate the transverse dimension of the cardiomediastinal silhouette which is unchanged. Bony Thorax and Soft Tissues: No significant interval findings. Chronic healed fracture deformity of the left clavicle. IMPRESSION: 1. The tip of an endotracheal tube ends at the level of the thoracic inlet. The arsen is difficult to identified. Tube is superimposed upon the right 3rd thoracic vertebra. 2. Low lung volumes limit interpretation. Prominent central pulmonary vascular markings and diffuse bilateral reticular opacities are consistent with pulmonary venous congestion and interstitial edema. ECG Data Attestation: I personally reviewed and interpreted this ECG as follows: Critical Care Time Critical Care Time Total Critical Care Time in Minutes: 120 Discharge Plan Discharge Clinical Impression: Acute respiratory failure, Sepsis, Elevated troponin, Seizure Patient Disposition: Xfer Other Discharge Location: [facility] Condition: Critical Prescriptions: No Action urea 20 % cream 1 applic topical aspirin 81 mg tablet,delayed release (DR/EC) 81 mg PO DAILY acetaminophen 500 mg tablet 500 mg PO Q6H PRN cholecalciferol (vitamin D3) 25 mcg (1,000 unit) tablet 25 mcg PO DAILY multivitamin with folic acid [Tab-A-Myron] 400 mcg tablet 1 tab PO DAILY omega 9-szb-coc-fish oil 300 mg (120 mg- 180mg)-1,000 mg capsule PO atorvastatin 40 mg tablet 40 mg PO DAILY bupropion HCl 150 mg tablet extended release 24 hr 150 mg PO DAILY carvedilol 6.25 mg tablet 6.25 mg PO BID Rx Instructions: must administer with a meal/food clopidogrel 75 mg tablet 75 mg PO DAILY escitalopram oxalate 20 mg tablet 20 mg PO DAILY furosemide 20 mg tablet 20 mg PO DAILY gabapentin 300 mg capsule 300 mg PO DAILY Incruse Ellipta 62.5 mcg/actuation blister with device 1 inh inhalation DAILY Jardiance 25 mg tablet 25 mg PO DAILY lisinopril 5 mg tablet 5 mg PO DAILY trazodone 100 mg tablet 100 mg PO DAILY Stand Alone [facility]: [facility] Info Instructions
[2024-06-07 08:40] LABS: Basophils Percent Auto 0.2 % (0.0-3.0); Hematocrit 51.8 % (37.0-53.0); Hemoglobin* 17.2 gm/dL (13.5-17.5); Immature Granulocytes Pct Auto 0.2 %; Lymphocytes Percent Auto 16.8 % (20-44); Mean Corpuscular HGB Conc 33 gm/dL (32-36); Mean Corpuscular Hemoglobin 29 pg (26-34); Mean Corpuscular Volume 88 fL (80-100); Monocytes Percent Auto 10.1 % (0.0-11.0); Neutrophils Percent Auto 72.7 % (42.0-72.0); Platelet Count* 222 K/uL (140-440); RDW Coefficient of Variation % 12.8 % (11.5-15.5); Red Blood Count 5.91 m/uL (4.30-5.90); White Blood Count* 12.69 K/uL (4.50-11.00)
[2024-06-07 08:45] LABS: Slide Review Reflex No
[2024-06-07] MEDS: PROPOFOL 10 MG/ML INJ 200 MG IVP (08:45)
[2024-06-07] MEDS: propofoL 1,000 MG/100 ML ML 0.17 MG IVPB (08:46)
--- OUTSIDE RECORDS SUMMARY | 2024-06-07 08:46 | XMS_ITS | Clinical Summary ---
Author Organization [facility] Address [place], [place] [address] Care Team Providers [employer] Name Role Phone Services, Eleonora Physician Primary Care Provi annette [facility] Care, Taniya Unavailable [phone] Allergies Active Allergy Reactions Criticality Noted Date Comments Doxycycline *Unknown - Follow up needed 020 Tetracycline Rash 12/01/2008 Medications DAILY-VADIM tablet Take 1 tablet by mouth once daily. 11/04/19 20 Active polyethylene glycol (MIRALAX; GLYCOLAX) 17 g powder for solution Take 17 g by mouth or nasogastric tube once daily if needed for Constipation. 0 01/08/20 20 Active durable medical equipment (DME)Indications: Physical deconditioning,Ri ght hemiparesis (HC) Lift chair. 1 Each 06/15/19 21 Active lancets (Microlet Lancet)Indication s:Controlled type 2 diabetes mellitus without complication, without long-term current use of insulin (HC) TEST TWO TIMES DAILY 200 Each 3 12/12/19 21 Active blood sugar diagnostic (Contour Next Test Strips) stripIndications: Controlled type 2 diabetes mellitus without complication, without long-term current use of insulin (HC) TEST TWO TIMES DAILY 200 Strip 3 12/12/19 21 Active atorvastatin (LIPITOR) 40 mg tabletIndications :Mixed hyperlipidemia Take 1 Tablet (40 mg) by mouth at bedtime. 90 Tablet 4 06/02/19 22 Active clopidogreL (PLAVIX) 75 mg tabletIndications :Arteriosclerotic heart disease (ASHD) TAKE 1 TABLET BY MOUTH EVERY MORNING 28 Tablet 12 12/31/19 22 Active buPROPion (WELLBUTRIN XL) 150 mg Extended-Release tabletIndications :Depression, unspecified depression type TAKE 1 TABLET BY MOUTH EVERY MORNING 28 Tablet 12 02/25/20 22 Active escitalopram oxalate (LEXAPRO) 20 mg tabletIndications :Depression, unspecified depression type TAKE 1 TABLET BY MOUTH EVERY MORNING 28 Tablet 12 02/25/20 22 Active traZODone (DESYREL) 100 mg tabletIndications :Depression, unspecified depression type TAKE 1 TABLET BY MOUTH EVERY NIGHT AT BEDTIME 28 Tablet 12 02/25/20 22 Active acetaminophen (TYLENOL EXTRA STRGTH) 500 mg tabletIndications :Pain Two oral twice daily. 180 Tablet 4 05/06/20 22 Active carvediloL (COREG) 6.25 mg tabletIndications :Arteriosclerotic heart disease (ASHD) TAKE 1 TABLET BY MOUTH TWICE DAILY WITH MEALS 60 Tablet 05/18/19 23 Active furosemide (LASIX) 20 mg tabletIndications :Arteriosclerotic heart disease (ASHD) TAKE 1 TABLET BY MOUTH EVERY MORNING 30 Tablet 05/18/19 23 Active aspirin (ECOTRIN) 81 mg enteric coated tabletIndications :Arteriosclerotic heart disease (ASHD) TAKE 1 TABLET BY MOUTH EVERY MORNING WITH MEAL 90 Tablet 2 06/17/19 23 Active Lgu-V-LiwhIqtbkms ions:Nutritional deficiency TAKE 1 TABLET BY MOUTH EVERY MORNING 90 Tablet 06/17/19 23 Active cholecalciferol (VITAMIN D3) 1,000 unit tabletIndications :Nutritional deficiency TAKE 1 TABLET BY MOUTH EVERY MORNING 90 Tablet 06/17/19 23 Active albuterol HFA (PRO-AIR; VENTOLIN; PROVENTIL) 90 mcg/actuation inhaler Inhale 2 Puffs by mouth 4 times daily if needed for Shortness Of Breath. Active Basaglar KwikPen U-100 Insulin 100 unit/mL (3 mL) pen Inject 61 units subcutaneous once daily. Active fluticasone propion-salmetero L (ADVAIR) 250-50 mcg/Dose diskus inhaler Inhale 1 Puff by mouth every 12 hours. Active Dnmku-6-NBX-EPA-F mary Oil (Fish OiL) 1,000 (120-180) mg cap Take 2 Capsules by mouth two times daily. Active insulin aspart niacinamide (Fiasp FlexTouch U-100 Insulin) 100 unit/mL (3 mL) pen Inject 7 units subcutaneous three times daily before meals. Active gabapentin (NEURONTIN) 300 mg capsule Take 300 mg by mouth at bedtime. Active umeclidinium (Incruse Ellipta) 62.5 mcg/actuation inhaler Inhale 1 Puff by mouth once daily. Discard inhaler 6 weeks after opening or when the counter reads '0' (after all blisters have been used), whichever comes first. Active empagliflozin (Jardiance) 25 mg tablet Take 25 mg by mouth once daily. Active lisinopriL (PRINIVIL; ZESTRIL) 5 mg tablet Take 5 mg by mouth at bedtime. Active aluminum-magnesiu m hydroxide-simethi cone (Antacid) 200-200-20 mg/5 mL suspension Take 15 mL by mouth 4 times daily if needed for GI Upset. Shake Well. Active loperamide (IMODIUM) 2 mg tablet each time if needed for Diarrhea. Take 2 tablets (4mg) orally with 1st loose stool, then 1 tablet (2mg) with other loose stools. Max 8 tablets (16 mg) in 24 hrs. Active calcium carbonate (TUMS) 200 mg calcium (500 mg) chewable tablet Chew 500 mg by mouth 4 times daily if needed. Active dextromethorphan- guaFENesin (ROBITUSSIN DM) (10-100 mg in 5 mL) Take 5-10 mL by mouth every 4 hours if needed (cough or congestion). Active diphenhydrAMINE (BenadryL) 25 mg capsule Take 25 mg by mouth every 4 hours if needed (allergies). Active acetaminophen (Mapap) 325 mg tablet Take 325-650 mg by mouth every 4 hours if needed for Pain (fever). Max acetaminophen dose: 4000mg in 24 hrs. Active Milk of Magnesia 400 mg/5 mL suspension Take 15-30 mL by mouth once daily if needed for Constipation. Active ibuprofen (ADVIL; MOTRIN) 200 mg tablet Take 1-2 Tablets by mouth every 4 hours if needed for Pain. Take 1-2 tablets every 4-6 hours as needed. Active glipiZIDE extended-release (GLUCOTROL XL) 5 mg Extended-Release tabletIndications :Controlled type 2 diabetes mellitus with complication, without long-term current use of insulin (HC) Take 1 Tablet (5 mg) by mouth once daily before a meal. 90 Tablet 3 01/26/ 025 Discontin ued(*Adriana ent states no longer taking) acetaminophen SR (TYLENOL ARTHRITIS) 650 mg Extended-Release tabletIndications :Pain TAKE 2 TABLETS BY MOUTH TWICE DAILY 360 Tablet 1 10/08/19 22 025 Discontin ued(*Adriana ent states no longer taking) metFORMIN (GLUCOPHAGE) 1,000 mg tabletIndications :Controlled type 2 diabetes mellitus with complication, without long-term current use of insulin (HC) TAKE 1 TABLET BY MOUTH TWICE DAILY WITH MEALS 60 Tablet 12/02/19 22 025 Discontin ued(*Adriana ent states no longer taking) ibuprofen (IBU-200) 200 mg tablet Take 200 mg by mouth 4 times daily if needed. 025 Discontin ued(*IP Discontin ued) Active Problems Problem Noted Date Diagnosed Date Bilateral pneumonia 05/12/2024 Septic shock due to undetermined organism 2024 Acute hypoxemic respiratory failure 05/11/2024 Obesity, Class II, BMI 35-39.9 11/21/2019 Controlled [...] Resolved Date Acute renal failure 12/30/2019 12/25/19 Right hemiparesis 11/21/2019 06/02/2021 Chest pain 12/01/2008 11/21/2019 Tobacco use disorder 12/01/2008 020 Overview (12/01/2008): - ongoing, 5 cigarettes/day Diabetes Mellitus Type II, Diet-Controlled 12/01/2008 11/21/2019 Overview (12/01/2008): - diet controlled Encounters Date Type Department Care Team Description 06/07/2024 4:00 PM [facility] Hospital Encounter [facility] [address] [place] [address] s, U Hospitalist Svc 06/03/2024 3:00 PM [facility] Home Care Visit [facility]ly [facility] [address] [place] [address] Shana Brumfield, PT PT - OASIS DISCHARGE 05/29/2024 1:15 PM [facility] Home Care Visit [facility]ly [facility] [address] [place] [address] Miryam Jerome, OT OT - PYA-SGMW-SVVL ASSESSMENT 05/28/2024 3:30 PM TOP [facility]ER Home Care Visit [facility] [address] [place] [address] Emanuel Iniguez, PT PT - HOME VISIT 05/28/2024 Travel 05/21/2024 1:00 PM TOP [facility] Home Care Visit [facility] [address] [place] [address] Eddie Pulido, PT PT - OASIS START OF CARE 05/21/2024 Plan of Care Documentation [facility] [address] [place] [address] 05/21/2024 Travel 05/19/2024 Travel 05/11/2024 12:31 PM TOP IRONER - 05/20/2024 6:15 PM TOP [facility]ER Hospital Encounter [facility] [address] [address] Yadira Smith MD [place], MD Remy Mariano, MD Bonilla Del Angel Hani, MBBS Abear, MD Leonard Thrasher, GUTIERREZ Orozco [place], [facility] Hospitalists Of Aspiration pneumonia of both lungs, unspecified aspiration pneumonia type, unspecified part of lung (HC) (Primary Dx); Controlled type 2 diabetes mellitus without complication, without long-term current use of insulin (HC) Discharge Disposition: Home Health 05/10/2024 Office Visit [facility] [address] [place] [address] Cooper Campo MBBS Telehealth ([facility]) from Last 3 Months Immunizations Name Administration [...] 0 11/21/2019 Social Connections Answer Date Recorded Do you often feel lonely or isolated from those around you? 0 05/19/2024 Financial Resource Strain Answer Date R ecorded Difficulty of Paying Living Expenses 3 05/19/2024 Difficulty of Paying Living Expenses Not on file 05/19/2024 Food Insecurity Answer Date Recorded Do you worry your food will run out before you are able to buy more? 1 05/19/2024 Transportation Needs Answer Date Record ed Does lack of transportation keep you from medica l appointments? 1 05/19/2024 Does lack of transportation keep you from work, meetings or getting things that you need? 1 05/19/2024 Housing Stability Answer Date Recorded What is your housing situation today? 1 05/19/2024 Interpersonal Safety Answer Date Record ed Are you being hit, kicked, p ushed or yelled at (see row info)? No 05/19/2024 Interpersonal Safety Abuse 12 - 18 Not on file 05/19/2024 Interpersonal Safety Ambulatory Vulnerability No t on file 05/19/2024 Utilities Answer Date Recorded Do you have trouble paying f or utilities (for example, heat, electricity, water, phone)? 1 05/19/2024 Sex and Gender Information Value Date Recorded Sex Assigned at Not on file Legal Sex Male 7:38 AM TOP IRONER Gender Identity Not on file Sexual Orientation Not on file Occupation Industry Job Start Date Job End Date [employer] Not on file Not on file Not on file Obstetrics History Last Filed Vital Signs Vital Sign Reading Time Taken Comments Blood Pressure 128/70 06/03/2024 3:32 PM TOP [facility]ONER Pulse 87 06/03/2024 3:32 PM TOP [facility]ER Temperature 36.3 C (97.4 F) 06/03/2024 3:32 PM TOP IRONER Respiratory Rate 16 06/03/2024 3:32 PM TOP IRONER Oxygen Saturation 91% 06/03/2024 3:32 PM TOP [facility]ER Inhaled Oxygen Concentration - - Weight 126 kg (277 lb 11.2 oz) 05/19/2024 5:48 A M TOP IRONER Height 185.4 cm (6' 1) 05/11/2024 2:00 PM TOP IRONER Body Mass Index 36.64 05/11/2024 2:00 PM TOP IRONER Plan of Treatment Health Maintenance Due Date Last Done Comments HIV for age 15-65 1973 Colonoscopy through age 75 01/01/2004 Zoster (shingles) series for age 50+ (1 of 2) 2008 Pneumococcal series for age 50+ (2 of 2 - PCV) 04/27/2017 04/27/2016, 10/02/2014, 08/09/2010 RSV vaccine for adults or (1 - Risk 60-74 years 1-dose series) 2018 Depression screening for age 12+ 11/20/2020 11/21/19 20, 11/21/2019 BMI (ht and wt on same day) for age 18+ 06/02/2022 06/02/2021, 11/21/2019 Influenza for age 65+ 01/07/2024 02/10/2020 , 02/25/2019, 02/27/2018, Additional history exists Lipids for age 45-75 06/02/2026 06/02/2021, 05/04/2020, 05/04/2020, Additional history exists Tetanus booster 12/22/2029 12/23/2019, 04/19/2013 Tdap Completed 12/23/2019, 04/19/2013 Hepatitis C screening for ag e 18-79 Completed 12/24/2020 COVID-19 vaccine series Completed 02/13/20 24, 08/17/2023, 02/20/2023, Additional history exists Procedures Procedure Name Priority Date/Time Associated Diagnosis Comments GLUCOSE METER Timed 05/20/2024 11:24 AM TOP IRONER GLUCOSE METER Timed 05/20/2024 9:10 AM TOP IRONER CREATININE Early AM 05/20/2024 6:43 AM TOP [facility]ER POTASSIUM Early AM 05/20/2024 6:43 AM TOP IRONER SODIUM Early AM 05/20/2024 6:43 AM TOP [facility]ONER GLUCOSE METER Timed 05/19/2024 9:35 PM TOP IR[facility]ER GLUCOSE METER Timed 05/19/2024 5:06 PM TOP [facility]ER GLUCOSE METER Timed 05/19/2024 12:10 PM TOP IR[facility]ER GLUCOSE METER Timed 05/19/2024 9:22 AM TOP [facility]ER CREATININE Early AM 05/19/2024 8:27 AM TOP [facility]ER POTASSIUM Early AM 05/19/2024 8:27 AM TOP IRONER SODIUM Early AM 05/19/2024 8:27 AM TOP IR[facility]ER GLUCOSE METER Timed 05/19/2024 7:04 AM TOP IRONER GLUCOSE METER Timed 05/18/2024 9:42 PM TOP IRONER GLUCOSE METER Timed 05/18/2024 5:14 PM TOP IR[facility]ER GLUCOSE METER Timed 05/18/2024 1:36 PM TOP IRONER GLUCOSE METER Timed 05/18/2024 8:54 AM TOP IRONER CREATININE Early AM 05/18/2024 7:36 AM TOP IRONER POTASSIUM Early AM 05/18/2024 7:36 AM TOP IRONER SODIUM Early AM 05/18/2024 7:36 AM TOP IRONER GLUCOSE METER Timed 05/17/2024 10:04 PM TOP IRONER GLUCOSE METER Timed 05/17/2024 5:09 PM TOP IRONER GLUCOSE METER Timed 05/17/2024 1:18 PM TOP IR[facility]ER GLUCOSE METER Timed 05/17/2024 8:31 AM TOP [facility]ER CREATININE Early AM 05/17/2024 7:28 AM TOP [facility]ER POTASSIUM Early AM 05/17/2024 7:28 AM TOP IR[facility]ER SODIUM Early AM 05/17/2024 7:28 AM TOP [facility]ER GLUCOSE METER Timed 05/16/2024 9:23 PM TOP IRONER GLUCOSE METER Timed 05/16/2024 5:02 PM TOP [facility]ER GLUCOSE METER Timed 05/16/2024 12:08 PM TOP IRONER SCAN CORRESP-EKG RESULTS 05/16/2024 11:25 AM TOP IRONER SCAN CORRESP-LABORATORY RESULTS 05/16/2024 11:25 AM TOP IRONER SCAN CORRESP-IMAGING 05/16/2024 11:25 AM TOP [facility]ER CREATININE Early AM 05/16/2024 7:51 AM TOP [facility]ER POTASSIUM Early AM 05/16/2024 7:51 AM TOP IRONER SODIUM Early AM 05/16/2024 7:51 AM TOP IRONER GLUCOSE METER Timed 05/16/2024 7:30 AM TOP IRONER GLUCOSE METER Timed 05/15/2024 11:17 PM TOP IRONER GLUCOSE METER Timed 05/15/2024 5:45 PM TOP IRONER GLUCOSE METER Timed 05/15/2024 1:09 PM TOP [facility]ER CREATININE Early AM 05/15/2024 10:43 AM TOP IRONER POTASSIUM Early AM 05/15/2024 10:43 AM TOP IRONER SODIUM Early AM 05/15/2024 10:43 AM TOP IRONER GLUCOSE METER Timed 05/15/2024 8:53 AM TOP IRONER GLUCOSE METER Timed 05/14/2024 9:35 PM TOP IRONER GLUCOSE METER Timed 05/14/2024 5:22 PM TOP IRONER GLUCOSE METER Timed 05/14/2024 12:22 PM TOP IRONER GLUCOSE METER Timed 05/14/2024 9:38 AM TOP IRONER WHITE BLOOD COUNT Early AM 05/14/2024 5:3 8 AM TOP IRONER CREATININE Early AM 05/14/2024 5:38 AM TOP IRONER POTASSIUM Early AM 05/14/2024 5:38 AM TOP IRONER SODIUM Early AM 05/14/2024 5:38 AM TOP IRONER GLUCOSE METER Timed 05/13/2024 11:19 PM TOP IRONER GLUCOSE METER Timed 05/13/2024 10:14 PM TOP IRONER GLUCOSE METER Timed 05/13/2024 6:01 PM TOP IRONER GLUCOSE METER Timed 05/13/2024 1:39 PM TOP IRONER GLUCOSE METER Timed 05/13/2024 9:33 AM TOP IRONER PHOSPHORUS JOSEPH 05/13/2024 9:19 AM TOP IRONER MAGNESIUM JOSEPH 05/13/2024 9:19 AM TOP IRONER CBC W PLT NO DIFF Early AM 05/13/2024 9:1 9 AM TOP IRONER BASIC METABOLIC PANEL Early AM 05/13/2024 9:19 AM TOP [facility]ONER SCAN-CARDIAC STRIP 05/13/2024 8: 00 AM TOP IRONER GLUCOSE METER Timed 05/12/2024 10:45 PM TOP IRONER GLUCOSE METER Timed 05/12/2024 5:16 PM TOP IRONER GLUCOSE METER Timed 05/12/2024 4:14 PM TOP IRONER GLUCOSE METER Timed 05/12/2024 3:14 PM TOP IRONER GLUCOSE METER Timed 05/12/2024 2:14 PM TOP IRONER CALCIUM IONIZED HOSPITAL DRAW ONLY Timed 05/12/2024 1:12 PM TOP IRONER GLUCOSE METER Timed 05/12/2024 1:00 PM TOP IRONER GLUCOSE METER Timed 05/12/2024 11:49 AM TOP IRONER GLUCOSE METER Timed 05/12/2024 11:48 AM TOP IRONER GLUCOSE METER Timed 05/12/2024 10:43 AM TOP IRONER GLUCOSE METER Timed 05/12/2024 8:39 AM TOP IRONER GLUCOSE METER Timed 05/12/2024 6:58 AM TOP IRONER GLUCOSE METER Timed 05/12/2024 5:04 AM TOP [facility]ONER SCAN-CARDIAC STRIP 05/12/2024 2: 47 AM TOP IRONER GLUCOSE METER Timed 05/12/2024 2:47 AM TOP IRONER CBC W PLT NO DIFF Early AM 05/12/2024 2:4 3 AM TOP IRONER BASIC METABOLIC PANEL Early AM 05/12/2024 2:43 AM TOP [facility]ONER CALCIUM IONIZED HOSPITAL DRAW ONLY Timed 05/12/2024 2:43 AM TOP IRONER GLUCOSE METER Timed 05/12/2024 2:10 AM TOP IRONER GLUCOSE METER Timed 05/12/2024 12:44 AM TOP IRONER GLUCOSE METER Timed 05/11/2024 11:46 PM TOP IRONER GLUCOSE METER Timed 05/11/2024 10:47 PM TOP IRONER GLUCOSE METER Timed 05/11/2024 9:43 PM TOP IRONER GLUCOSE METER Timed 05/11/2024 8:41 PM TOP IRONER GLUCOSE METER Timed 05/11/2024 7:51 PM TOP IRONER ARTERIAL BLOOD GAS Today 05/11/2024 7: 48 PM TOP IRONER BASIC METABOLIC PANEL Today 05/11/2024 7:48 PM TOP IRONER SCAN-CARDIAC STRIP 05/11/2024 5: 06 PM TOP IRONER GLUCOSE METER Timed 05/11/2024 4:54 PM TOP IRONER BLOOD CULTURE STAT 05/11/2024 4:17 PM TOP [facility]ER BLOOD CULTURE STAT 05/11/2024 4:[address] CHEST PULMONARY EMBOLUS PE ABDOMEN PELVIS W STAT 05/11/2024 3:[address] HEAD BRAIN WO STAT 05/11/2024 3:29 PM TOP IRONER XR CHEST 1 VIEW PORTABLE STAT 05/11/2024 2:39 PM TOP IRONER LEGIONELLA AND PNEUMOCOCCAL URINE ANTIGEN STAT 05/11/2024 2:20 PM TOP IRONER MRSA/SA PCR STAT 05/11/2024 2:20 PM TOP [facility]ER COMPREHENSIVE BLOOD GAS ARTERIAL Timed 05/11/2024 1:15 PM TOP IRONER CBC WITH AUTO DIFFERENTIAL STAT 05/11/2024 1:14 PM TOP IRONER CORTISOL TOTAL STAT 05/11/2024 1:14 PM TOP IRONER TSH STAT 05/11/2024 1:14 PM TOP IRONER CALCIUM IONIZED HOSPITAL DRAW ONLY STAT 05/11/2024 1:14 PM TOP IRONER LACTATE ARTERIAL STAT 05/11/2024 1:14 PM TOP IRONER HEPATIC FUNCTION PANEL STAT 1:14 PM TOP IRONER CBC WITH AUTO DIFFERENTIAL STAT 05/11/2024 1:14 PM TOP IRONER BASIC METABOLIC PANEL STAT 05/11/2024 1:14 PM TOP IRONER GLUCOSE METER Timed 05/11/2024 12:58 PM TOP IRONER BEDSIDE US STUDY ARCHIVE Routine 05/11/2024 12:42 PM TOP IRONER LIPID PANEL W REFLEX MEASURED LDL Routine 06/02/2021 9:09 AM TOP IRONER Controlled type 2 diabetes mellitus without complication, without long-term current use of insulin (HC) ANTI HCV Routine 12/24/2020 11:23 AM CDT Need for hepatitis C screening test from Last 3 Months or Most Recently Relevant to Health Maintenance Results * (ABNORMAL) GLUCOSE METER (05/20/2024 11:24 AM TOP IRONER) Only the most recent of54 resultswithin the time period is included. GLUCOSE METER 148(H) 65 - 100 mg/dL 05/20/2024 11:29 AM TOP IRONER [facility] Blood BLOOD SPECIMEN / Unknown 05/20/2024 11:24 AM TOP IRONER 05/20/2024 11:29 AM TOP IRONER Marisa WHITLEY CHEMISTRY Lisa l Result Performing Organization Address City/[facility]/ZIP Co de Phone Number [facility] [address] [place] [address], [place] * (ABNORMAL) SODIUM (05/20/2024 6:43 AM TOP IRONER) Only the most recent of7 resultswithin the time period is included. SODIUM 135(L) 136 - 145 mmol/L 05/20/2024 7:44 AM TOP IRONER [facility] Blood BLOOD SPECIMEN / Unknown Venipuncture / Unknown 05/20/2024 6:43 AM TOP IRONER 05/20/2024 7:04 AM TOP IRONER Augusto Keys MD CHEMISTRY Final Result Performing Organization Address City/[facility]/ZIP Co de Phone Number [facility] [address] [place] [address], [place] * POTASSIUM (05/20/2024 6:43 AM TOP IRONER) Only the most recent of7 resultswithin the time period is included. POTASSIUM 4.7 3.5 - 5.1 mmol/L 05/20/2024 7:44 AM TOP IRONER [facility] Blood BLOOD SPECIMEN / Unknown Venipuncture / Unknown 05/20/2024 6:43 AM TOP IRONER 05/20/2024 7:04 AM TOP IRONER Augusto Keys MD CHEMISTRY Final Result Performing Organization Address City/[facility]/ZIP Co de Phone Number [facility] [address] [address], [place] * (ABNORMAL) CREATININE (05/20/2024 6:43 AM TOP IRONER) Only the most recent of7 resultswithin the time period is included. eGFR 71(L) >90 mL/min/1.7 3m2 05/20/2024 7:44 AM TOP IRONER [facility] Comment:As of 2021, eG FR is calculated by the CKD-EPI creatinine equation without race adjustment. eGFR can be influenced by muscle mass, exercise, and diet. The reported eGFR is an estimation only and is only applicable if the renal function is stable. CREATININE 1.15 0.70 - 1.20 mg/dL 05/20/2024 7:44 AM TOP IRONER [facility] Blood BLOOD SPECIMEN / Unknown Venipuncture / Unknown 05/20/2024 6:43 AM TOP IRONER 05/20/2024 7:04 AM TOP IRONER Augusto Keys MD CHEMISTRY Final Result Performing Organization Address City/[facility]/ZIP Co de Phone Number [facility] [address] [place] [phone], [place] * SCAN CORRESP-LABORATORY RESULTS (05/16/2024 11:25 AM TOP IRONER) Narrative 05/16/2024 11:25 AM TOP IRONER Ordered by an unspecified provider. Other Clinical Staff OTHER Final Resul t * SCAN CORRESP-EKG RESULTS (05/16/2024 11:25 AM TOP IRONER) Narrative 05/16/2024 11:25 AM TOP IRONER Ordered by an unspecified provider. us Other Clinical Staff OTHER Final Resul t * SCAN CORRESP-IMAGING (05/16/2024 11:25 AM TOP IRONER) Anatomical Region Laterality Modality Other Narrative 05/16/2024 11:25 AM TOP IRONER Ordered by an unspecified provider. us Other Clinical Staff OTHER Final Resul t * WBC AM (05/14/2024 5:38 AM TOP IRONER) WHITE BLOOD COUNT 9.6 4.5 - 11.0 thou/cu mm 05/14/2024 6:03 AM TOP IRONER [facility] NRBC 0.0 % 05/14/2024 6:03 AM TOP IRONER [facility] ABS NRBC 0.0 thou /cu mm 05/14/2024 6:03 AM TOP IRONER [facility] Blood BLOOD SPECIMEN / Unknown Venipuncture / Unknown 05/14/2024 5:38 AM TOP IRONER 05/14/2024 5:56 AM TOP IRONER Augusto Keys MD HEMATOLOGY Final Result [facility] [address] [place] [address], [place] * (ABNORMAL) CBC W PLT NO DIFF (05/13/2024 9:19 AM TOP IRONER) Only the most recent of2 resultswithin the time period is included. WHITE BLOOD COUNT 13.0(H) 4.5 - 11.0 thou/cu mm 05/13/2024 9:54 AM TOP IRONER [facility] RED BLOOD COUNT 5.02 4.30 - 5.90 mil/cu mm 05/13/2024 9:54 AM TOP IRONER [facility] HEMOGLOBIN 14.6 13.5 - 17.5 g/dL 05/13/2024 9:54 AM [facility] HEMATOCRIT 45.1 37.0 - 53.0 % 05/13/2024 9:54 AM [facility] MCV 90 80 - 100 fL 05/13/2024 9:54 AM [facility] MCH 29.1 26.0 - 34.0 pg 05/13/2024 9:54 AM TOP IRONER [facility] MCHC 32.4 32.0 - 36.0 g/dL 05/13/2024 9:54 AM [facility] RDW 13.4 11.5 - 15.5 % 05/13/2024 9:54 AM [facility] PLATELET COUNT 177 140 - 440 thou/cu mm 05/13/2024 9:54 AM [facility] MPV 9.5 6.5 - 11.0 fL 05/13/2024 9:54 AM [facility] NRBC 0.0 % 05/13/2024 9:54 AM [facility] ABS NRBC 0.0 thou /cu mm 05/13/2024 9:54 AM [facility] Blood BLOOD SPECIMEN / Unknown Venipuncture / Unknown 05/13/2024 9:19 AM TOP IRONER 05/13/2024 9:45 AM TOP IRONER Elijah Santana MD HEMATOLOGY Final Re sult [facility] [address] [place] [id number], * PHOSPHORUS (05/13/2024 9:19 AM TOP IRONER) [facility] PHOSPHORUS 3.3 2.5 - 4.5 mg/dL 05/13/2024 3:22 PM TOP IRONER [facility] Blood BLOOD SPECIMEN / Unknown Venipuncture / Unknown 05/13/2024 9:19 AM TOP IRONER 05/13/2024 9:45 AM TOP IRONER Augusto Keys MD CHEMISTRY Final Result [facility] [address] [place] [id number], [place] * MAGNESIUM (05/13/2024 9:19 AM TOP IRONER) MAGNESIUM 2.0 1.6 - 2.4 mg/dL 05/13/2024 3:20 PM TOP IRONER [facility] Blood BLOOD SPECIMEN / Unknown Venipuncture / Unknown 05/13/2024 9:19 AM TOP IRONER 05/13/2024 9:[address] [facility] Augusto Keys MD CHEMISTRY Final Result Performing Organization Address [facility] Co de Phone Number [facility] [address] [place] [phone], [place] * (ABNORMAL) BASIC METABOLIC PANEL (05/13/2024 9:19 AM TOP IRONER) Only the most recent of4 resultswithin the time period is included. SODIUM 139 136 - 145 mmol/L 05/13/2024 10:19 AM [facility] POTASSIUM 4.1 3.5 - 5.1 mmol/L 05/13/2024 10:19 AM [facility] CHLORIDE 105 98 - 107 mmol/L 05/13/2024 10:19 AM [facility] CO2,TOTAL 22 22 - 29 mmol/L 05/13/2024 10:19 AM [facility] ANION GAP 12 5 - 18 05/13/2024 10:19 AM [facility] GLUCOSE 88 70 - 99 mg/dL 05/13/2024 10:19 AM [facility] CALCIUM 9.1 8.8 - 10.4 mg/dL 05/13/2024 10:19 AM [facility] Comment: Reference ranges for this test were updated on 03/12/2024 to reflect our healthy population more accurately. Reference range changes are not retroactively applied to results, but previous results using the same methodology can be interpreted in the context of the new reference range. BUN 41(H) 8 - 23 mg/dL 05/13/2024 10:19 AM [facility] CREATININE 1.20 0.70 - 1.20 mg/dL 05/13/2024 10:19 AM [facility] BUN/CREAT RATIO 34(H) 10 - 20 10:19 AM [facility] eGFR 67(L) >90 mL/min/1.7 3m2 05/13/2024 10:19 AM [facility] Comment:As of 2021, eG FR is calculated by the CKD-EPI creatinine equation without race adjustment. eGFR can be influenced by muscle mass, exercise, and diet. The reported eGFR is an estimation only and is only applicable if the renal function is stable. Blood BLOOD SPECIMEN / Unknown Venipuncture / Unknown 05/13/2024 9:19 AM [facility] 05/13/2024 9:45 AM [facility] us Elijah Santana MD CHEMISTRY Final Re sult [facility] [address] [id number], * SCAN-CARDIAC STRIP (05/13/2024 8:00 AM [facility]) us Scanner OTHER Final Result * CALCIUM IONIZED HOSPITAL DRAW ONLY (05/12/2024 1:12 PM [facility]) Only the most recent of3 resultswithin the time period is included. CALCIUM,IONIZE D 1.22 1.15 - 1.27 mmol/L 05/12/2024 1:28 PM [facility] Blood BLOOD SPECIMEN / Unknown Non-Lab Venipuncture / Unknown 05/12/2024 1:12 PM [facility] 05/12/2024 1:20 PM [facility] Joey Dominguez MD CHEMISTRY Final Result [facility] [address] [place] [id number], [place] * SCAN-CARDIAC STRIP (05/12/2024 2:47 AM [facility]) us Scanner OTHER Final Result * (ABNORMAL) ARTERIAL BLOOD GAS (05/11/2024 7:48 PM [facility]) PH, ARTERIAL 7.35 7.35 - 7.45 05/11/2024 8:05 PM [facility] PCO2, ARTERIAL 39 35 - 48 mmHg 05/11/2024 8:05 PM [facility] PO2, ARTERIAL 105 83 - 108 mmHg 05/11/2024 8:05 PM [facility] HCO3, ARTERIAL 22 21 - 28 mmol/L 05/11/2024 8:05 PM [facility] BASE EXCESS, ARTERIAL -3.8(L) -2.0 - 3.0 05/11/2024 8:05 PM [facility] O2 SATURATION, ARTERIAL 99(H) 94 - 98 % 05/11/2024 8:05 PM [facility] INSPIRED O2 05/11/2024 8:05 PM [facility] Comment:Unit of Measure: Lit ers (L) if <=20; Percent (%) if >20 PATIENT TEMPERATURE 37.0 Degrees C 05/11/2024 8:05 PM [facility] Blood ARTERIAL BLOOD SPECIMEN / Unknown Non-Lab Venipuncture / Unknown 05/11/2024 7:48 PM [facility] 05/11/2024 8:01 PM [facility]ER Elijah Santana MD CHEMISTRY Final Re sult [facility] [address] [place] [address], [place] * SCAN-CARDIAC STRIP (05/11/2024 5:06 PM TOP [facility]) us Scanner OTHER Final Result * Blood Culture (05/11/2024 4:17 PM TOP [facility]ER) Only the most recent of2 resultswithin the time period is included. CULTURE No Growth. 05/16/2024 7:39 PM [facility] Blood BLOOD SPECIMEN / Unknown Butterfly / Unknown 05/11/2024 4:17 PM [facility]ER 05/11/2024 7:25 PM TOP [facility]ER Narrative [facility] - 05/16/2024 7:39 PM TOP [facility]ER Low volume blood culture received; possible false negative culture. Yadira Smith MD MICROBIOLOGY Final Result [facility] [address] [place] [id number], [place] * CT CHEST PULMONARY EMBOLUS PE ABDOMEN PELVIS W (05/11/2024 3:32 PM TOP IR[facility]ER) Anatomical Region Laterality Modality CHEST, Abdomen, Pelvis Computed Tomography 05/11/2024 4:11 PM [facility]ER Impressions 05/11/2024 4:11 PM TOP [facility]ER 1. Significant respiratory motion limits evaluation of distal pulmonary emboli. No central or proximal pulmonary emboli seen. Bilateral patchy irregular opacities likely infectious/inflammatory basilar atelectasis and consolidation with small effusions. 2. No acute findings in the abdomen or pelvis. Please note that all CT scans at this facility use dose modulation, iterative reconstruction, and/or weight-based dosing when appropriate to reduce radiation dose to as low as reasonably achievable. Dictated by Shelia Orellana MD @ 05/11/2024 4:11:04 PM (Electronically Signed) Narrative 05/11/2024 4:11 PM [facility]ER For Patients: As a result of the 21st Century Cures Act, medical imaging exams and procedure reports are released immediately into your electronic medical record. You may view this report before your referring provider. If you have questions, please contact your health care provider. INDICATION: Shortness of breath . TECHNIQUE: CT chest, abdomen and pelvis acquired with 91 mL Omnipaque 350 contrast. COMPARISON: None. FINDINGS: CHEST: Cardiovascular structures: Heart size is normal. Thoracic aorta and main pulmonary artery are normal in caliber. Significant respiratory motion limits evaluation for more distal pulmonary emboli. No central or proximal emboli seen. Coronary artery calcification. Pericardial calcification Mediastinum and keyon: No mass or adenopathy. Lungs and pleura: Basilar atelectasis and consolidation. Bilateral patchy opacities within the lungs which probably is infectious or inflammatory. Small effusions. Chest wall and axilla: No mass or adenopathy. ABDOMEN AND PELVIS: Liver: Too small to characterize low-attenuation lesions in the liver. Gallbladder and bile ducts: Cholecystectomy Pancreas: Unremarkable. Spleen: Unremarkable. Adrenal glands: Unremarkable. Kidneys: Unremarkable. GI tract: Diverticulosis bowel otherwise is unremarkable. Vascular structures: Abdominal aorta is normal in caliber. Lymph nodes: Unremarkable. Miscellaneous: Small fat containing inguinal hernias. Pelvic Organs: Neil in the urinary bladder decompressed Bones: No suspicious bone lesions. Procedure Note Shelia Orellana MD - 05/11/2024 For Patients: As a result of the Cures Act, medical imagingexams and procedure reports are released immediately into your electronicmedical record. You may view this report before your referring provider.If you have questions, please contact your health care provider. INDICATION: Shortness of breath . TECHNIQUE: CT chest, abdomen and pelvis acquired with 91 mL Omnipaque 350 contrast. COMPARISON: None. FINDINGS: CHEST: Cardiovascular structures: Heart size is normal. Thoracic aorta and mainpulmonary artery are normal in caliber. Significant respiratory motionlimits evaluation for more distal pulmonary emboli. No central or proximalemboli seen. Coronary artery calcification. Pericardial calcification Mediastinum and keyon: No mass or adenopathy. Lungs and pleura: Basilar atelectasis and consolidation. Bilateral patchyopacities within the lungs which probably is infectious or inflammatory.Small effusions. Chest wall and axilla: No mass or adenopathy. ABDOMEN AND PELVIS: Liver: Too small to characterize low-attenuation lesions in the liver. Gallbladder and bile ducts: Cholecystectomy Pancreas: Unremarkable. Spleen: Unremarkable. Adrenal glands: Unremarkable. Kidneys: Unremarkable. GI tract: Diverticulosis bowel otherwise is unremarkable. Vascular structures: Abdominal aorta is normal in caliber. Lymph nodes: Unremarkable. Miscellaneous: Small fat containing inguinal hernias. Pelvic Organs: Neil in the urinary bladder decompressed Bones: No suspicious bone lesions. IMPRESSION: 1. Significant respiratory motion limits evaluation of distal pulmonaryemboli. No central or proximal pulmonary emboli seen. Bilateral patchyirregular opacities likely infectious/inflammatory basilar atelectasis andconsolidation with small effusions. 2. No acute findings in the abdomen or pelvis. Please note that all CT scans at this facility use dose modulation,iterative reconstruction, and/or weight-based dosing when appropriate toreduce radiation dose to as low as reasonably achievable. Dictated by Shelia Orellana MD @ 05/11/2024 4:11:04 PM (Electronically Signed) Elijah Santana MD CT Final Re sult * CT HEAD BRAIN WO (05/11/2024 3:29 PM TOP IRONER) Anatomical Region Laterality Modality HEAD, BRAIN Computed Tomogra phy 05/11/2024 3:50 PM TOP [facility]ER Impressions 05/11/2024 3:50 PM [facility] 1. No acute intracranial findings. 2. Chronic right cerebellar infarct. 3. Mild generalized parenchymal volume loss with chronic microvascular ischemic changes. Please note that all CT scans at this facility use dose modulation, iterative reconstruction, and/or weight-based dosing when appropriate to reduce radiation dose to as low as reasonably achievable. Dictated by Bryant Jacobs MD @ 05/11/2024 3:50:58 PM (Electronically Signed) Narrative 05/11/2024 3:50 PM [facility] For Patients: As a result of the Century Cures Act, medical imaging exams and procedure reports are released immediately into your electronic medical record. You may view this report before your referring provider. If you have questions, please contact your health care provider. TECHNIQUE: Multiplanar CT examination of the head was performed without the use of intravenous contrast. INDICATION: Altered mental status. COMPARISON: None. FINDINGS: No loss of españa-white differentiation to suggest recent territorial infarct. No intracranial hemorrhage, abnormal extra-axial fluid collection, hydrocephalus or midline shift. Large chronic right cerebellar infarct. The ventricles and cerebral sulci are prominent in caliber, compatible with mild generalized parenchymal volume loss. There is patchy ill-defined hypoattenuation of the supratentorial white matter diffusely, nonspecific but consistent with chronic microvascular ischemic changes. The basal cisterns are patent. The paranasal sinuses and mastoid air cells remain clear. The orbits and calvarium are unremarkable. The cerebellar tonsils are normal position. Procedure Note Bryant Jacobs DO - 05/11/2024 For Patients: As a result of the Cures Act, medical imagingexams and procedure reports are released immediately into your electronicmedical record. You may view this report before your referring provider.If you have questions, please contact your health care provider. TECHNIQUE: Multiplanar CT examination of the head was performed without the use ofintravenous contrast. INDICATION: Altered mental status. COMPARISON: None. FINDINGS: No loss of españa-white differentiation to suggest recent territorialinfarct. No intracranial hemorrhage, abnormal extra-axial fluidcollection, hydrocephalus or midline shift. Large chronic right cerebellar infarct. The ventricles and cerebral sulci are prominent in caliber, compatiblewith mild generalized parenchymal volume loss. There is patchy ill-definedhypoattenuation of the supratentorial white matter diffusely, nonspecificbut consistent with chronic microvascular ischemic changes. The basalcisterns are patent. The paranasal sinuses and mastoid air cells remain clear. The orbits andcalvarium are unremarkable. The cerebellar tonsils are normal position. IMPRESSION: 1. No acute intracranial findings. 2. Chronic right cerebellar infarct. 3. Mild generalized parenchymal volume loss with chronic microvascularischemic changes. Please note that all CT scans at this facility use dose modulation,iterative reconstruction, and/or weight-based dosing when appropriate toreduce radiation dose to as low as reasonably achievable. Dictated by Bryant Jacobs MD @ 05/11/2024 3:50:58 PM (Electronically Signed) Elijah Santana MD CT Final Re sult * XR CHEST 1 VIEW PORTABLE (05/11/2024 2:39 PM TOP IRONER) Anatomical Region Laterality Modality HEART, THORAX, CHEST Digital Rad iography Narrative 05/11/2024 2:44 PM TOP IRONER Indication: Shortness of breath. Comparison: Chest x-ray dated 05 January 2020. Findings: A single portable chest x-ray shows a right-sided central venous catheter with the distal tip overlying the right atrium. Normal cardiac silhouette. The lungs show mild interstitial prominence. No pneumothorax. Impression: Mild interstitial prominence in the lungs may represent pulmonary edema. Center venous catheter with the distal tip overlying the right atrium. Yadira Smith MD GENERAL IMAGING Final Result * LEGIONELLA AND PNEUMOCOCCAL URINE ANTIGEN (05/11/2024 2:20 PM TOP IRONER) STREP PNEUMO ANTIGEN Negative 05/11/2024 4:15 PM [facility] Comment:Presumptive negative for pneumococcal pneumonia, suggesting no current or recent pneumococcal infection. Infection due to S. pneumoniae cannot be ruled out since the antigen present in the sample may be below the detection limit of the test. LEGIONELLA ANTIGEN Negative 05/11/2024 4:15 PM [facility] Comment:Negative for L.pneum ophila serogroup 1 antigen, suggesting no recent or current infection. Infection due to Legionella cannot be ruled out since other serogroups and species may cause disease, antigen may not be present in urine in early infection, and the level of antigen present may be below the detection limit of the test. Low test sensitivity in patients with mild pneumonia. Urine URINE SPECIMEN / Unknown Non-Blood / Unknown 05/11/2024 2:20 PM TOP [facility]ER 05/11/2024 2:42 PM TOP IR[facility]ER Elijah Santana MD MICROBIOLOGY Final Re sult [facility] [address] [place] [address], * MRSA/SA PCR (05/11/2024 2:20 PM TOP IRONER) MRSA DNA PCR Negative Negative 05/11/2024 4:50 PM [facility] STAPHYLOCOCCUS AUREUS PCR Negative Negative 05/11/2024 4:50 PM [facility] Other SPECIMEN FROM INTERNAL NOSE / Unknown Non-Blood / Unknown 05/11/2024 2:20 PM TOP [facility]ER 05/11/2024 2:42 PM TOP [facility]ER Narrative [facility] - 05/11/2024 4:50 PM TOP [facility]ER Test result does not preclude MRSA or SA nasal colonization. Elijah Santana MD MICROBIOLOGY Final Re sult [facility] [address] [place] [address], [place] * (ABNORMAL) COMPREHENSIVE BLOOD GAS ARTERIAL (05/11/2024 1:15 PM TOP IRONER) PH, ARTERIAL 7.33(L) 7.35 - 7.45 05/11/2024 1:15 PM [facility] PCO2, ARTERIAL 38 35 - 48 mmHg 05/11/2024 1:15 PM [facility] PO2, ARTERIAL 74(L) 83 - 108 mmHg 05/11/2024 1:15 PM [facility] HCO3, ARTERIAL 20(L) 21 - 28 mmol/L 05/11/2024 1:15 PM [facility] BASE EXCESS, ARTERIAL -5.4(L) -2.0 - 3.0 05/11/2024 1:15 PM [facility] O2 SATURATION, ARTERIAL 96 94 - 98 % 05/11/2024 1:15 PM [facility] PATIENT TEMPERATURE 37.0 Degrees C 05/11/2024 1:15 PM [facility] HEMOGLOBIN,BLOO D GAS 16.8 13.5 - 17.5 g/dL 05/11/2024 1:15 PM [facility] SODIUM 132(L) 136 - 145 mmol/L 05/11/2024 1:15 PM [facility] POTASSIUM 5.2(H) 3.5 - 5.1 mmol/L 05/11/2024 1:15 PM [facility] CHLORIDE 103 98 - 107 mmol/L 05/11/2024 1:15 PM [facility] Blood BLOOD SPECIMEN / Unknown 05/11/2024 1:15 PM [facility]ER 05/11/2024 1:16 PM [facility]ER Yadira Smith MD CHEMISTRY Final Result Performing Organization Address [facility]/ZIP Co de Phone Number [facility] [address] [place] [address], [place] * LACTATE ARTERIAL (05/11/2024 1:14 PM TOP IRONER) LACTATE,ARTERI AL 1.5 0.5 - 1.6 mmol/L 05/11/2024 1:53 PM [facility] Blood BLOOD SPECIMEN / Unknown Non-Lab Venipuncture / Unknown 05/11/2024 1:14 PM TOP IRONER 05/11/2024 1:26 PM [facility]ER Elijah Santana MD CHEMISTRY Final Re sult Performing Organization Address [facility] Co de Phone Number [facility] [address] [place] [address], [place] * CORTISOL TOTAL (05/11/2024 1:14 PM TOP IRONER) CORTISOL,TOTAL 17.4 ug/dL 05/11/2024 2:31 PM [facility] Blood BLOOD SPECIMEN / Unknown Non-Lab Venipuncture / Unknown 05/11/2024 1:14 PM TOP IRONER 05/11/2024 1:26 PM TOP IRONER Narrative [facility] - 05/11/2024 2:31 PM TOP IRONER Cortisol Morning Hours 6:00 AM - 10:00 AM (4.8-19.5 ug/dL) Cortisol Afternoon Hours 4:00 PM - 8:00 PM (2.5-11.9 ug/dL) Biotin supplements may cause clinically significant interference for this test assay. If interference is suspected, it is strongly recommended that biotin is discontinued for at least one week prior to retesting. Elijah Santana MD CHEMISTRY Final Re sult Performing Organization Address [facility] Co de Phone Number [facility] [address] [place] [address], [place] * (ABNORMAL) CBC WITH AUTO DIFFERENTIAL (05/11/2024 1:[address] [facility]) WHITE BLOOD COUNT 23.8(H) 4.5 - 11.0 thou/cu mm 05/11/2024 1:35 PM [facility] RED BLOOD COUNT 5.47 4.30 - 5.90 mil/cu mm 05/11/2024 1:35 PM [facility] HEMOGLOBIN 16.0 13.5 - 17.5 g/dL 05/11/2024 1:35 PM [facility] HEMATOCRIT 48.8 37.0 - 53.0 % 05/11/2024 1:35 PM [facility] MCV 89 80 - 100 fL 05/11/2024 1:35 PM [facility] MCH 29.3 26.0 - 34.0 pg 05/11/2024 1:35 PM [facility] MCHC 32.8 32.0 - 36.0 g/dL 05/11/2024 1:35 PM [facility] RDW 13.1 11.5 - 15.5 % 05/11/2024 1:35 PM [facility] PLATELET COUNT 212 140 - 440 thou/cu mm 05/11/2024 1:35 PM [facility] MPV 9.1 6.5 - 11.0 fL 05/11/2024 1:35 PM [facility] NRBC 0.0 % 05/11/2024 1:35 PM [facility] ABS NRBC 0.0 thou /cu mm 05/11/2024 1:35 PM [facility] % NEUT 84.5 % 05/11/2024 1:35 PM [facility] % LYMPH 6.8 % 05/11/2024 1:35 PM [facility] % MONO 7.2 % 05/11/2024 1:35 PM [facility] % EOS 0.0 % 05/11/2024 1:35 PM [facility] % BASO 0.2 % 05/11/2024 1:35 PM [facility] % IMMATURE GRAN (METAS,MYELOS,[place] OS) 1.3 % 05/11/2024 1:35 PM [facility] ABSOLUTE NEUTROPHILS 20.1(H) 1.7 - 7.0 thou/cu mm 05/11/2024 1:35 PM [facility] ABSOLUTE LYMPHOCYTES 1.6 0.9 - 2.9 thou/cu mm 05/11/2024 1:35 PM [facility] ABSOLUTE MONOCYTES 1.7(H) <0.9 thou/cu mm 05/11/2024 1:35 PM [facility] ABSOLUTE EOSINOPHILS 0.0 <0.5 thou/cu mm 05/11/2024 1:35 PM [facility] ABSOLUTE BASOPHILS 0.1 <0.3 thou/cu mm 05/11/2024 1:35 PM [facility] ABSOLUTE IMMATURE GRANULOCYTES(MET ,MYELOS,PROS) 0.3(H) <0.3 thou/cu mm 05/11/2024 1:35 PM [facility] Blood BLOOD SPECIMEN / Unknown Non-Lab Venipuncture / Unknown 05/11/2024 1:14 PM [facility]ER 05/11/2024 1:26 PM TOP [facility]ER us Yadira Smith MD HEMATOLOGY Final Result [facility] [address] [place] [address], * TSH (05/11/2024 1:14 PM TOP [facility]ER) TSH 0.30 0.27 - 4.20 uIU/mL 05/11/2024 2:31 PM [facility] Blood BLOOD SPECIMEN / Unknown Non-Lab Venipuncture / Unknown 05/11/2024 1:14 PM TOP IRONER 05/11/2024 1:26 PM TOP [facility] - 05/11/2024 2:31 PM TOP [facility]ONER In Adults, TSH values between 5.00 and 10.00 uIU/ml do not necessarily indicate the presence of Hypothyroidism. Correlation with clinical findings such as presence of goiter and/or Thyroperoxidase (TPO) Antibody may be helpful. For more information please refer to CICI 2004; [phone]: [phone]. Elijah Santana MD CHEMISTRY Final Re sult [facility] [address] [place] [address], [place] * (ABNORMAL) Hepatic Function Panel (05/11/2024 1:14 PM TOP IRONER) ALBUMIN 3.6(L) 4.0 - 4.9 g/dL 05/11/2024 1:53 PM [facility] PROTEIN,TOTAL 6.3 6.0 - 8.0 g/dL 05/11/2024 1:53 PM [facility] BILIRUBIN,TOTAL 0.7 0.0 - 1.2 mg/dL 05/11/2024 1:53 PM [facility] BILIRUBIN,DIRECT 0.3(H) 0.0 - 0.2 mg/dL 05/11/2024 1:53 PM [facility] BILIRUBIN,INDIRE CT 0.4 0.2 - 0.8 mg/dL 05/11/2024 1:53 PM [facility] ALK PHOSPHATASE 105 40 - 129 IU/L 05/11/2024 1:53 PM [facility] ALT (SGPT) 24 10 - 50 IU/L 05/11/2024 1:53 PM [facility] AST (SGOT) 38 10 - 50 IU/L 05/11/2024 1:53 PM [facility] Blood BLOOD SPECIMEN / Unknown Non-Lab Venipuncture / Unknown 05/11/2024 1:14 PM TOP [facility]ER 05/11/2024 1:26 PM TOP [facility]ER Yadira Smith MD CHEMISTRY Final Result [facility] [address] [place] [address], [place] * (ABNORMAL) LIPID PANEL W REFLEX MEASURED LDL (06/02/2021 9:09 AM TOP IRONER) CHOLESTEROL,TOTAL 176 100 - 199 mg/dL 06/02/2021 2:14 PM [facility] TRIGLYCERIDES 324(H) <150 mg/dL 06/02/2021 2:14 PM [facility] HDL CHOLESTEROL 40(L) >40 mg/dL 2:14 PM [facility] NON-HDL CHOLESTEROL 136 <145 mg/dl 06/02/2021 2:14 PM [facility] CHOL/HDL RATIO 4.40 <4.50 06/02/2021 2:14 PM [facility] LDL CHOLESTEROL 71 <=130 mg/dL 06/02/2021 2:14 PM [facility] VLDL CHOLESTEROL 65(H) <=30 mg/dL 06/02/2021 2:14 PM [facility] PROVIDER ORDERED STATUS RANDOM 06/02/2021 2:14 PM [facility] Blood BLOOD SPECIMEN / Unknown Venipuncture / Unknown 06/02/2021 9:09 AM TOP [facility]ER 06/02/2021 9:09 AM TOP IRONER us Dillan Browne MD CHEMISTRY Final Result [facility] [address] [place] [address], [place] * ANTI HCV (12/24/2020 11:23 AM CDT) HEPATITIS C ANTIBODY Non-React hattie Non-React hattie 12/24/2020 9:01 PM CDT [facility] Comment:Antibodies to HCV no t detected; does not exclude the possibility of exposure to HCV. Blood BLOOD SPECIMEN / Unknown Venipuncture / Unknown 12/24/2020 11:23 AM CDT 12/24/2020 11:27 AM CDT Dillan Browne MD SEND OUTS Final Result [facility] [address] [place] [address], from Last 3 Months or Most Recently Relevant to Health Maintenance Additional Health Concerns Infection Onset Date Last Indicated MRSA Comment:Order contact precautions. 05/13/24 lives in SNF, not eligible for clearance Nares surveillance cultures needed to clear patient if <12 months since positive culture. If >12 months since positive culture, precautions can be discontinued if patient has no MRSA risk factors. 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/shelter care, receiving hemodialysis, has chronic open wounds/skin damage, has long-term percutaneous indwelling medical devices Exclusions for nares collection (if <12 months since positive culture) include all of the previous exclusions plus patients on antibiotics 7 days prior to collection 12/27/2019 12/27/2019 Insurance MEDICARE [place] ONLY MEDICARE PART A HB ONLY [facility] PL[facility] MEDICARE PART B HB ONLY MEDICARE PPS [facility] PL[facility] Advance Directives Documents on File Type Date Recorded Patient [employer] Treatment Guidelines 12/24/2019 * Full Code (Latest Code Status on File) Date Activated Date Inactivated Comments 05/11/2024 12:43 PM 05/20/2024 8:15 PM Question Answer Comments Code Status Discussion: Reviewed Preferences * Full Code Date Activated Date Inactivated Comments 12/27/2019 1:36 PM 01/08/2020 12:53 PM Question Answer Comments Code Status Discussion: Not Discussed * Full Code Date Activated Date Inactivated Comments 12/01/2008 2:29 PM 12/02/2008 9:17 PM Care Teams [employer] Relationship Specialty Start Date End Date Services, [facility] Physician [address] [place] [address] [address] [place] [address] PCP - General 05/08/[address] [address] 05/20/24
--- NOTE | 2024-06-07 08:49 | PM.ANBPRC ---
[facility] Medical History Hemiplegia and hemiparesis following cerebral infarction affecting right dominant side ?I69.351 - Hemiplegia and hemiparesis following cerebral infarction affecting right dominant side (ICD-10) Hypertension ?I10 - Essential (primary) hypertension (ICD-10) History of fall ?Z91.81 - History of falling (ICD-10) Hyperlipidemia ?E78.5 - Hyperlipidemia, unspecified (ICD-10) Obesity ?E66.9 - Obesity, unspecified (ICD-10) Type 2 diabetes mellitus ?E11.9 - Type 2 diabetes mellitus without complications (ICD-10) Surgical History Status post aorto-coronary artery bypass graft ?Z95.1 - Presence of aortocoronary bypass graft (ICD-10) Social History Smoking Status: Former smoker Non-prescribed substance use: denies use Meds Home Medications and Allergies Home Medications ?Medication ?Instructions ?Recorded ?Confirmed ?Type acetaminophen 500 mg tablet 500 mg PO Q6H PRN 05/10/24 05/11/24 History aspirin 81 mg tablet,delayed 81 mg PO DAILY 05/10/24 05/11/24 History release atorvastatin 40 mg tablet 40 mg PO DAILY 05/10/24 05/11/24 History bupropion HCl 150 mg 24 hr tablet, 150 mg PO DAILY 05/10/24 05/11/24 History extended release carvedilol 6.25 mg tablet 6.25 mg PO BID 05/10/24 05/11/24 History cholecalciferol (vitamin D3) 25 25 mcg PO DAILY 05/10/24 05/11/24 History mcg (1,000 unit) tablet clopidogrel 75 mg tablet 75 mg PO DAILY 05/10/24 05/11/24 History empagliflozin 25 mg tablet 25 mg PO DAILY 05/10/24 05/11/24 History (Jardiance) escitalopram oxalate 20 mg tablet 20 mg PO DAILY 05/10/24 05/11/24 History furosemide 20 mg tablet 20 mg PO DAILY 05/10/24 05/11/24 History gabapentin 300 mg capsule 300 mg PO DAILY 05/10/24 05/11/24 History lisinopril 5 mg tablet 5 mg PO DAILY 05/10/24 05/11/24 History multivitamin with folic acid 400 1 tab PO DAILY 05/10/24 05/11/24 History mcg tablet (Tab-A-Myron) omega-3 300 mg-dha 120 mg-epa 180 cap PO 05/10/24 History mg-fish oil 1,000 mg capsule trazodone 100 mg tablet 100 mg PO DAILY 05/10/24 05/11/24 History umeclidinium 62.5 mcg/actuation 1 inh inhalation DAILY 05/10/24 05/11/24 History blister powder for inhalation (Incruse Ellipta) urea 20 % topical cream 1 applic topical 05/10/24 History Allergies Allergy/AdvReac Type Severity Reaction Status Date / Time doxycycline Allergy Unknown Verified 05/11/24 10:36 tetracycline Allergy Unknown Verified 05/11/24 10:36 Results Labs Labs: Laboratory Results - last 24 hr 06/07/24 08:29 WBC 12.69 H RBC 5.91 H Hgb 17.2 Hct 51.8 MCV 88 MCH 29 MCHC 33 RDW Coeff of Regis 12.8 Plt Count 222 Neut % (Auto) 72.7 H Lymph % (Auto) 16.8 L [place] % (Auto) 10.1 Eos % (Auto) 0.0 Baso % (Auto) 0.2 Neut # (Auto) 9.20 H Lymph # (Auto) 2.10 [place] # (Auto) 1.30 H Eos # (Auto) 0.00 Baso # (Auto) 0.00 Abs Immat Gran (auto) 0.00 Imm/Tot Granulo (auto) 0.2 Lactate 3.0 H Vital Signs Vital Signs: Last Vital Signs Temp 99.4 F 06/07/24 08:23 Pulse 122 H 06/07/24 08:23 Resp 30 H 06/07/24 08:23 BP 175/124 H 06/07/24 08:23 Pulse Ox 90 06/07/24 08:23 O2 Del Method Room Air 06/07/24 08:23 Anesthesia Procedures Airway Patient Location: ED Urgency: emergent Start Time: 08:35 Stop Time: 08:45 Start Date: 06/07/24 Stop Date: 06/07/24 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
[2024-06-07] MEDS: KETAMINE HCL 100 MG/ML inj 200 MG IVP ×2 (08:51→08:59)
[2024-06-07] MEDS: KETAMINE HCL 500 MG in 0.9 % SODIUM CHLORIDE 500 ML 500 ML 135 ML IV (08:56)
[2024-06-07 08:57] LABS: Chloride* 101 mmol/L (96-114)
[2024-06-07 08:58] LABS: Albumin* 4.2 g/dL (3.3-5.0); Potassium* 5.1 mmol/L (3.6-5.1); Sodium* 137 mmol/L (135-149)
[2024-06-07 09:01] LABS: Alanine Aminotransferase* 27 U/L (4-50); Alkaline Phosphatase* 141 U/L (40-150); Anion Gap 13 mEq/L (7-15); Aspartate Amino Transferase* 31 U/L (12-35); Bilirubin Direct* 0.3 mg/dL (0.0-0.5); Bilirubin Total* 0.7 mg/dL (0.1-1.5); Blood Urea Nitrogen* 43 mg/dL (7-30); Carbon Dioxide* 23 mmol/L (20-32); Creatinine* 1.2 mg/dL (0.5-1.5); Estimated Glomerular Filt Rate 67 ml/min; Glucose* 216 mg/dL (60-115); Total Protein* 7.3 g/dL (6.0-8.3)
[2024-06-07 09:01] LABS: Magnesium* 2.2 mg/dL (1.5-2.6)
[2024-06-07 09:04] LABS: C Reactive Protein* 1.7 mg/dL (0.5-1.0)
[2024-06-07 09:15] LABS: D Dimer Quantitative* 1.49 ug/ml (0.00-0.50)
[2024-06-07] MEDS: ROCURONIUM BROMIDE 10 MG/ML inj 20 MG IV (09:15)
[2024-06-07 09:19] LABS: PCR FLU A Negative PCR FLU A (Negative); PCR FLU B Negative PCR FLU B (Negative); PCR RSV Negative PCR RSV (Negative); SARS PCR* Negative SARS-CoV-2 (Negative)
[2024-06-07 09:20] LABS: NT Pro B Type NatriureticPept* 877 pg/mL; Troponin I* 0.25 ng/mL (0.01-0.04)
[2024-06-07 09:21] LABS: Troponin, Point-of-Care* 0.18 ng/ml (0.01-0.04)
[2024-06-07 09:44] LABS: Appearance Urine Clear (Clear); Bilirubin Urine Negative (Negative); Blood Urine Negative (Negative); Color Urine Yellow (Yellow); Glucose Urine 2+ (Negative); Ketones Urine Negative (Negative); Leukocyte Esterase Urine Negative (Negative); Nitrite Urine Negative (Negative); Protein Urine Negative (Negative); Urobilinogen Urine 0.2 (0.2-1.0)
[2024-06-07 09:55] LABS: Amphetamine Screen Urine Negative (Negative); Barbiturate Screen Urine Negative (Negative); Benzodiazepines Screen Urine Negative (Negative); Cannabinoid Screen Urine Negative (Negative); Cocaine Screen Urine Negative (Negative); Methadone Screen Urine Negative (Negative); Methamphetamines Screen Urine Negative (Negative); Opiate Screen Urine Negative (Negative); Oxycodone Screen Urine Negative (Negative); Phencyclidine Screen Urine Negative (Negative); Tricyclic Antidepressant Urine Negative (Negative)
[2024-06-07 10:05] LABS: RBC Urine 0-2 (0-2); Squamous Epithelial Cell Urine Few (None-Few); WBC Urine 0-2 (0-5)
[2024-06-07] MEDS: AMPICILLIN/SULBACTAM 3 GM in 0.9 % SODIUM CHLORIDE Mini-bag 100 ML IVPB (10:15)
[2024-06-07] MEDS: TERBUTALINE 1 MG/ML INJ SUBCUT (10:28)
[2024-06-07] MEDS: fentaNYL 100 MCG/2 ML inj 200 MCG IVP (10:40)
[2024-06-07 11:18] VITALS: RESP 20
== END 2024-06-07 11:10 | disposition other institution (70) ==
PROVIDERS: Emergency Provider Family Medicine; PCP Family Medicine
DX: J96.00 Acute respiratory failure, unspecified whether with hypoxia or hypercapnia (principal); A41.9 Sepsis, unspecified organism; R56.9 Unspecified convulsions
CPT/HCPCS: 31500; 36415; 71045; 80048; 80076; 80306; 81001; 83605; 83735; 83880; 84145; 84484; 85025; 85379; 86140; 87631; 93005; 94761; 96365; 96366; 96375; 99285; 99291; 99292; A9270; J0295; J0330; J1953; J2704; J3010; J3105; J3490; J7030

== ENCOUNTER 2024-06-07 10:25 | Outpatient (CLI) | payer MEDICARE, MEDICAID, SELFPAY | END 2024-06-07 10:26 | disposition home or self-care (01) | LOC: AMB 06-18 05:21 | PROVIDERS: PCP Family Medicine; Visit Provider Family Medicine | DX: J96.00 Acute respiratory failure, unspecified whether with hypoxia or hypercapnia (principal); A41.9 Sepsis, unspecified organism; R56.9 Unspecified convulsions; R79.89 Other specified abnormal findings of blood chemistry | CPT/HCPCS: A0425; A0434 ==